=== PATIENT | female | born 1965 | race Caucasian/White ===

== ENCOUNTER 2018-06-03 12:12 | Outpatient (CLI) | payer BC, SELFPAY ==
--- NOTE | 2018-06-03 11:15 | DI.CT_ITS ---
SYMPTOMS/DIAGNOSIS: LT FLANK PAIN FOR 24 HRS, R10.9, COSTOCHONDRAL TENDERNESS ON EXAM, BENIGN URINE, LLQ TENDERNESS TO PALPATION RENAL COLIC CT: The study was conducted according to the usual protocol without contrast enhancement. The kidneys are normal. There is no evidence of nephrolithiasis or hydronephrosis. There is no evidence of ureterolithiasis or ureterectasis. The mid and inferior portions of the liver are demonstrated and are unremarkable. The gallbladder, pancreas and visualized portions of the spleen are unremarkable. The adrenals are normal. There is no evidence of bowel obstruction. No localized mass or evidence of an inflammatory process is identified. There is no evidence of an acute appendix. There is no evidence of intra-abdominal free fluid or free air. An IUD appears to be in good position in the endometrial cavity of the uterus. The bladder is suboptimally distended but appears grossly intact. There is no evidence of a hernia. There are minimal atherosclerotic changes involving the aorta without evidence of an aneurysm. Degenerative changes involving the lower lumbar spine are identified. SUMMARY: No pathology is demonstrated. There is no evidence of an acute abdomen. An IUD is demonstrated in good position in the endometrial cavity. Incidental findings as described above.
== END 2018-06-03 12:32 ==
PROVIDERS: PCP Nurse Practitioner Family; Visit Provider Family Medicine
DX: R10.32 Left lower quadrant pain (principal); R07.1 Chest pain on breathing; Z97.5 Presence of (intrauterine) contraceptive device
CPT/HCPCS: 74176

== ENCOUNTER 2018-06-03 18:13 | Outpatient (REF) | payer BC, SELFPAY ==
[2018-06-03 18:56] LABS: Bilirubin Negative (Negative); Blood Negative (Negative); Clarity Clear; Glucose Negative (Negative); Ketones Negative (Negative); Leukocyte Esterase Negative (Negative); Nitrite Negative (Negative); Specific Gravity 1.025 (1.005-1.025); Urobilinogen 0.2 EU/dL (Up TO 0.2)
== END 2018-06-03 18:33 ==
LOC: NCHCN 18:13
PROVIDERS: PCP Nurse Practitioner Family; Visit Provider Family Medicine
DX: R10.31 Right lower quadrant pain (principal)
CPT/HCPCS: 81003

== ENCOUNTER 2018-08-11 09:47 | Outpatient (CLI) | payer BC, SELFPAY ==
--- NOTE | 2018-08-11 16:30 | DI.MAMMO_ITS ---
SYMPTOM/DIAGNOSIS: SCREENING, PREVENTATIVE, Z00.00 MAMMOGRAMS: Mammograms were interpreted according to the usual protocol including computer analysis with CAD system, tomosynthesis and C view imaging. Comparison is made with exams from 0292-9013. The breasts are composed of scattered fibroglandular densities, breast density, category B. The patient was unable to tolerate adequate compression, particularly on the MLO views. No suspicious masses or suspicious microcalcifications are seen. There has been no significant change. IMPRESSION: Category 1B, negative mammogram. Yearly screening mammography is recommended. [facility] ASSESSMENT OF FINDINGS: Negative. Category 1. Patient will receive a letter notifying them of these results. BI-RADS category B. There are scattered areas of fibroglandular density.
== END 2018-08-11 10:07 ==
PROVIDERS: PCP Nurse Practitioner Family; Visit Provider Family Medicine
DX: Z00.00 Encounter for general adult medical examination without abnormal findings (principal); Z12.31 Encounter for screening mammogram for malignant neoplasm of breast
CPT/HCPCS: 77063; 77067

== ENCOUNTER 2019-02-01 09:57 | Outpatient (CLI) | payer BC, SELFPAY ==
--- NOTE | 2019-02-01 16:05 | DI.US_ITS ---
SYMPTOM/DIAGNOSIS: LOCALIZED SWELLING, MASS R22.1 THYROID ULTRASOUND: The right thyroid lobe measures 5.2 by 1.8 by 1.6 cm. A tiny cystic area of nodularity is noted in the mid pole. The isthmus measures 2.2 mm. The left thyroid lobe measures 4 by 1.6 by 1.4 mm. and is unremarkable. SOFT TISSUE NECK ULTRASOUND: A 1.3 by 0.7 by 1.2 cm. mass could represent a sebaceous cyst or abnormal lymph node or avascular mass. These findings to be correlated with the patient's clinical status.
== END 2019-02-01 10:17 ==
PROVIDERS: PCP Family Medicine; Visit Provider Family Medicine
DX: R22.1 Localized swelling, mass and lump, neck (principal); E07.89 Other specified disorders of thyroid
CPT/HCPCS: 76536

== ENCOUNTER 2019-02-08 15:42 | Outpatient (CLI) | payer BC, SELFPAY ==
[2019-02-08 17:32] LABS: CREATININE 0.86 mg/dL (0.55-1.02)
== END 2019-02-08 16:02 ==
PROVIDERS: PCP Family Medicine; Visit Provider Physician Assistant
DX: Z01.812 Encounter for preprocedural laboratory examination (principal)
CPT/HCPCS: 36415; 82565

== ENCOUNTER 2019-02-10 01:04 | Outpatient (CLI) | payer BC, SELFPAY ==
[2019-02-10] MEDS: Omnipaque 350 MG/ML 100 ML BTL IV (14:33)
--- NOTE | 2019-02-10 14:33 | DI.CT_ITS ---
SYMPTOMS/DIAGNOSIS: LEFT ANTERIOR NECK MASS X 1 MONTH, R22.1, TENDER TO PALPATION, CERVICAL LYMPHADENOPATHY, R59.0 CT SCAN OF THE NECK: Comparison ultrasound is 02/01/19. A marker was placed on the area of palpable concern. There is a well-circumscribed hypodense nonenhancing 1.3 x 1 cm x 1 cm nodule, which appears to correspond to the palpable abnormality. It lies on top of the left sternocleidomastoid muscle. It lies adjacent to the subcutaneous vasculature. This is nonspecific. This may represent a lymph node or sebaceous cyst. The nasopharynx, oropharynx, hypopharynx and larynx are unremarkable. The retropharyngeal space is unremarkable. The thyroid gland has a normal appearance. The parotid and submandibular glands have a normal appearance. The vascular structures are unremarkable. The lung apices are clear. No other significant adenopathy is seen in the chest. Degenerative changes are seen in the spine. The visualized paranasal sinuses are clear. No fluid levels are seen. The mastoid air cells are well pneumatized. IMPRESSION: Solitary 1 x 1.3 x 1 cm soft tissue nodule in the subcutaneous tissues in the left neck. This corresponds to the palpable abnormality. This may represent a benign lesion such as a lymph node or sebaceous cyst. Other etiologies cannot be excluded. If there is continued concern, followup may be considered. This may include a repeat ultrasound to document stability and size; biopsy or aspiration may also be considered.
== END 2019-02-10 01:24 ==
PROVIDERS: PCP Family Medicine; Visit Provider Otolaryngology Otolaryngology/Facial Plastic Surgery
DX: R22.1 Localized swelling, mass and lump, neck (principal); R59.0 Localized enlarged lymph nodes
CPT/HCPCS: 70491; J3490

== ENCOUNTER 2019-02-21 12:31 | Outpatient (REF) | payer BC, SELFPAY ==
--- NOTE | 2019-02-21 11:39 | PAPNONF_PTH ---
PATIENT: Ute Balbuena LOC: [facility]#:[id number] AGE/SX: 53/F ROOM: RE02/21/[address]: Vignesh Durham DO : 1965 BED: DIS: 02/21/2019 SPEC #: [id number] RECD: 02/22/19 12:32 STATUS: JIHAN REQ #: [id number] JAKY: 02/21/19 11:[address]: Vignesh Durham DEPT: [facility] Cytology RECD BY: Quin Gifford ENTERED: 02/22/19 12:33 SP TYPE: MARY JIMENEZ DR: Nikole Bautista Tissues: 1 - BODY FLUID CYTO-FINE NEEDLE ASPIRATE-[facility] Procedures: BODY FLUID CYTO-FINE NEEDLE ASPIRATE-[facility] Comments: [id number]
== END 2019-02-21 12:51 ==
LOC: NCHCN 12:31
PROVIDERS: PCP Family Medicine; Referring Provider Family Medicine; Visit Provider Otolaryngology Otolaryngology/Facial Plastic Surgery
DX: R22.1 Localized swelling, mass and lump, neck (principal)
CPT/HCPCS: 88104

== ENCOUNTER 2019-05-02 11:18 | Outpatient (CLI) | payer BC, SELFPAY ==
--- NOTE | 2019-05-02 11:46 | DI.RAD_ITS ---
EXAM: XR KNEE LT 3V AP,LAT,BAILEY CLINICAL HISTORY: KNEE PAIN LT, M25.562. TECHNIQUE: 2D digital imaging was performed. COMPARISON: LEFT KNEE 3 VIEW COMPLETE from 11/03/2014 FINDINGS: BONES: No acute fracture is present. No bony destructive lesion is seen. JOINTS: The knee is normally aligned. No joint effusion is seen. SOFT TISSUE: Normal. IMPRESSION: Normal radiographs of the left knee.
== END 2019-05-02 11:38 ==
PROVIDERS: PCP Family Medicine; Visit Provider Family Medicine
DX: M25.562 Pain in left knee (principal)
CPT/HCPCS: 73562

== ENCOUNTER 2019-05-02 11:51 | Outpatient (REF) | payer BC, SELFPAY ==
[2019-05-02 20:03] LABS: TSH (W/Ref FT4) 1.26 uIU/mL (0.36-3.74)
== END 2019-05-02 12:11 ==
LOC: NCHCN 11:51
PROVIDERS: PCP Family Medicine; Visit Provider Family Medicine
DX: R22.1 Localized swelling, mass and lump, neck (principal)
CPT/HCPCS: 84443

== ENCOUNTER 2019-12-09 15:12 | Outpatient (REF) | payer BC, SELFPAY | END 2019-12-09 15:32 | LOC: NCHCN 15:12 | PROVIDERS: PCP Family Medicine; Visit Provider Family Medicine | DX: N39.0 Urinary tract infection, site not specified (principal) | CPT/HCPCS: 87086 ==

== ENCOUNTER 2020-05-22 08:50 | Outpatient (REF) | payer BC, SELFPAY ==
[2020-05-22 12:52] LABS: Calculated LDL 118 mg/dL (<100); Cholesterol 170 mg/dL (<200); Glucose 101 mg/dL (74-106); HDL Cholesterol 31 mg/dL (40-60); Triglyceride 108 mg/dL (<150)
== END 2020-05-22 09:10 ==
LOC: NCHCN 08:50
PROVIDERS: PCP Family Medicine; Visit Provider Family Medicine
DX: Z00.00 Encounter for general adult medical examination without abnormal findings (principal); Z13.220 Encounter for screening for lipoid disorders; Z13.1 Encounter for screening for diabetes mellitus
CPT/HCPCS: 80061; 82947

== ENCOUNTER 2020-06-18 15:37 | Outpatient (REF) | payer BC, SELFPAY ==
[2020-06-21 01:50] LABS: Patient Race White; SARS-CoV-2 RNA Undetected (Undetected); SARS-CoV-2 Specimen Source Nasal
== END 2020-06-18 15:57 ==
LOC: NCHCN 15:37
PROVIDERS: PCP Family Medicine; Visit Provider Nurse Practitioner Family
DX: R05 Cough (principal)
CPT/HCPCS: U0003

== ENCOUNTER 2020-06-22 12:26 | Outpatient (REF) | payer BC, SELFPAY ==
[2020-06-22 20:38] LABS: Abs Immature Grans 0.03 10^3/uL (0.0-0.06); Absolute Basophil Count 0.08 10^3/uL (0.0-0.2); Absolute Eosinophil Count 0.56 10^3/uL (0.0-0.7); Absolute Lymphocyte Count 2.14 10^3/uL (1.2-3.4); Absolute Monocyte Count 0.73 10^3/uL (0.1-0.8); Absolute Neutrophil Count 6.68 10^3/uL (1.2-6.7); Basophils % 0.8; Eosinophils % 5.5; HCT 46.9 % (36.0-46.0); HGB 15.6 g/dL (11.2-15.7); Immature Grans % 0.3; Lymphocytes % 20.9; MCH 28.7 pg (27.0-33.0); MCHC 33.3 % (32.0-36.0); MCV 86.2 fL (80-95); MPV 13.7 fL (8.0-11.0); Monocytes % 7.1; Neutrophils % 65.4; Nucleated RBC 0 %; RBC 5.44 10^6/uL (3.93-5.22); RDW 11.9 % (11.7-14.6); RDW-SD 37.8 fL; WBC 10.22 10^3/uL (4.4-10.8)
[2020-06-22 20:55] LABS: ALT 19 U/L (14-59); AST 17 U/L (15-37); Alkaline Phosphatase 99 U/L (46-116); BUN 15 mg/dL (7-18); Bilirubin, Total 0.4 mg/dL (0.2-1.0); C-Reactive Protein 1.25 mg/dL (0.0-0.3); CREATININE 0.84 mg/dL (0.55-1.02); Calcium 9.2 mg/dL (8.5-10.1); Chloride 105 mmol/L (98-107); Glucose 141 mg/dL (74-106); Potassium 4.1 mmol/L (3.5-5.1); Sodium 141 mmol/L (136-145); Total Protein 7.2 g/dL (6.4-8.2)
[2020-06-22 21:13] LABS: Platelet Count 322 10^3/uL (130-400)
[2020-06-26 03:40] LABS: Patient Race White; SARS-CoV-2 RNA Undetected (Undetected); SARS-CoV-2 Specimen Source Nasal
== END 2020-06-22 12:46 ==
LOC: NCHCN 12:26
PROVIDERS: PCP Family Medicine; Visit Provider Nurse Practitioner Family
DX: R05 Cough (principal); R06.09 Other forms of dyspnea
CPT/HCPCS: 80053; U0003; 85025; 86140

== ENCOUNTER 2020-06-22 18:34 | Outpatient (CLI) | payer BC, SELFPAY ==
--- NOTE | 2020-06-22 12:00 | DI.RAD_ITS ---
EXAM: XR CHEST 2V PA LATERAL CLINICAL HISTORY: COUGH R05 TECHNIQUE: 2D digital imaging was performed. COMPARISON: CR CHEST 2 VIEWS PA,LAT from 05/26/2016 FINDINGS: MEDIASTINUM: Normal. HEART: Normal. PULMONARY VASCULATURE: Normal. LUNGS: Clear. PLEURAL SPACE: No pleural effusion or pneumothorax. BONE:Within normal limits for the patient's age. OTHER FINDINGS:Normal. IMPRESSION: No acute pulmonary findings. DATA REPOSITORY: RADIATION DOSE DELIVERED:
== END 2020-06-22 18:54 ==
PROVIDERS: PCP Family Medicine; Visit Provider Nurse Practitioner Family
DX: R05 Cough (principal)
CPT/HCPCS: 71046

== ENCOUNTER 2020-07-17 00:23 | Outpatient (CLI) | payer BC, SELFPAY ==
--- NOTE | 2020-07-17 | DI.MAMMO_ITS ---
EXAM: MG MAMMO SCREENING CLINICAL HISTORY: SCREENING, Z12.31 TECHNIQUE: Bilateral full field digital CC and MLO mammographic images were obtained with 3D tomosyn thesis and utilizing computer aided detection (CAD). COMPARISON: Available for comparison. FINDINGS: Masses/Architectural Distortion: None seen. Microcalcifications: No suspicious pleomorphic-type are seen. Skin Thickening/Nipple Retraction: None. IMPRESSION: 1. No significant interval change with no specific features of malignancy noted. 2. Unless there is more urgent need, screening mammography is recommended, as per [place] [employer] guidelines. BI-RADS Category 1 - Negative Breast Density - Category B - Scattered areas of fibroglandular density A negative radiographic report should not delay biopsy if a dominant or clinically suspicious mass is present. Up to ten percent of cancers are not identified on mammography. A negative report may reinforce clinical impression. Adenosis and dense breasts may obscure an underlying neoplasm. False positive reports average 6 to 10%. Patient will receive a letter notifying them of these results.
== END 2020-07-17 00:43 ==
PROVIDERS: PCP Family Medicine; Visit Provider Family Medicine
DX: Z12.31 Encounter for screening mammogram for malignant neoplasm of breast (principal)
CPT/HCPCS: 77063; 77067

== ENCOUNTER → 2020-10-02 13:53 | Outpatient (CLI) | payer BC, SELFPAY ==
--- NOTE | 2020-10-02 | DI.RAD_ITS ---
EXAM: XR KNEE LT 4V AP,LAT,BAILEY,PAT CLINICAL HISTORY: LT KNEE PAIN M25.562, WITH SUNRISE PLEASE TECHNIQUE: COMPARISON: CR XR KNEE LT 3V AP,LAT,BAILEY from 05/02/2019 FINDINGS: Four views were obtained. There is moderate narrowing of the medial tibiofemoral cartilaginous joint space. Remainder of the cartilaginous joint spaces appear fairly well maintained. Mild marginal os teophyte formation noted at multiple sites. IMPRESSION: DJD predominantly involving medial tibiofemoral joint RADIATION DOSE DELIVERED: Total DLP
--- OUTSIDE RECORDS SUMMARY | 2020-10-05 13:55 | XMS_ITS | Encounter Summary ---
:1965 Author Care Team Providers Name Role Phone Nikole Bautista Primary Care Provider [phone] Reason for Visit None recorded. Assessment and Plan 1. Obstructive sleep apnea syndr ome HARI with an AHI of 8.5/hr and sp02 kyara 86% diagnosed on recent HST which may underestimate the severity of HARI. Given her symptoms treatment is recommended. I discussed treatment options to include oral appliance, ENT surgery and CPAP therapy and the advantages and disadvantages of each. he has BCBS which requires CPAP be the first treatment tried. She has agreed to start CPAP. CPAP 6-16cm is ordered. I discussed different mask options and the importance of finding the mask that will work for her within the first 30 days. I discussed how to adjust humidity for dryness/congestion and that the goal will be to use nightly for her total sleep time. I covered insurance compliance requirements and the DME's mask exchange policy. I will see her back between 31-90 days after starting CPAP and she is encouraged to call me sooner if s he is having any difficulties tolerating CPAP. I will order an overnight oximetry at follow-up after I determine if any pressure adjustments need to be made. Drowsy driving precautions were reviewed. I provided greater than 25 minutes in e care of this patient, more than half the time was spent in [id number] counseling. ? CPAP machine Discussion Note: None recorded.Patient educational handouts: No information available. Plan of Care Reminders Provider Appointments Office 30 11/06/2020 Jean Dalal, 10:30AM DIRECTOR PUBLIC SERVICE Lab None ? ? recorded. Referral None ? ? recorded. Procedures None ? ? recorded. Surgeries None ? ? recorded. Imaging None ? ? recorded. Medications Name Start Date ? ? albuterol sulf 90 mcg/actuation breath activated powde r inhaler,sensor ? Inhale 2 puffs every 4 hours by inhalation route. fexofenadine 180 mg tablet ? Take 1 tablet every day by oral route. omeprazole 40 mg capsule,delayed release ? Take 1 capsule every day by oral route. ranitidine 150 mg capsule ? Take 1 capsule twice a day by oral route. sertraline 50 mg tablet ? Take 1 tablet every day by oral route. Medications Administered None recorded. Vitals Height Weight BMI Blood Pressure 5 ft 6.5 in 235 lbs 37.4 kg/m2 122/74 mm[Hg] Results Lab Results None recorded. Allergies Code Code System Name Reaction Severity Onset Penicillins ? ? ? Problems Name Status Onset Date Source ? Snoring Active 12/16/2019 ? Vitamin D Deficiency Active 12/19/2019 ? Obesity Active 12/19/2019 ? Depressive Disorder Active 12/19/2019 ? Upper Respiratory Infection Active 12/19/2019 ? Asthma Active 12/19/2019 ? Chronic Obstructive Lung Disease Active 12/19/2019 ? Gastroesophageal Reflux Disease Active 12/19/2019 ? Hiatal Hernia Active 12/19/2019 ? Knee Pain Active 12/19/2019 ? Headache Active 12/19/2019 ? Obstructive Sleep Apnea Syndrome Active ? ? Procedures None recorded. Vaccine List None recorded. Social History Tobacco Smoking Status Never Smoker Alcohol intake Occasional Notes: mixed drin ks occasional Live alone or with others? with others Animal exposure? Y Notes: 3 dogs, pi g Are you currently employed? Y Blind or serious difficulty seeing Y Not es: wears glasses Hard of hearing or deaf in one or N both ears? Caffeine intake Occasional Notes: 1 coffee i n am Functional Status Blind or serious Yes difficulty seeing? Past Encounters 07/17/2020 Obstructive Sleep Apnea Syndrome Ina Dalal DIRECTOR PUBLIC SERVICE: [address] [place] [phone], Ph. History of Present Illness Note: <p>Ute Esha has a visit for HST results.</p><p>
</p><p>Ute had a phone visit with me on 12/20/19. She has a medical history to include obesity, asthma, COPD, vit D deficiency, depression, GERD, and headaches. Labs reviewed 05/02/19 TSH wnl, 02/08/19 Cr wnl. She noted symptoms of <span> loud snoring, frequent morning headaches, night sweats, and fatigue. A PSG was denied by her insurance. </span></p><p>HST 05/14/20 (BMI 36.56), and I reviewed the results with her today. AHI 8.5/hr, sp02 kyara 86%, 58 minutes spent with oxygen saturation <88%. Loud snoring was detected throughout the night.</p><p>
</p><p>Ute tells me she still has above symptoms. No new sleep symptoms. Her sleep for the HST was worse because she feels it took a lot longer to fall asleep. </p>Review of Systems: ROS as noted in the HPI Review of Systems None recorded. Physical Exam ? Notes: <p>General: A&O, well groome d {{over weight obese * morbidly obese normal weight thin}}.
HEAD: no rmocephalic & atraumatic.
EYES: non icteric.
LUNGS: CTA all f ields. Good air movement.
CARDIO: RRR without murmur, gallop or thrill.
NEURO: A&O. Normal gait.
PSYCH: Normal mood and affect.
CUTANEOUS: no overt lesions or rashes</p>
--- OUTSIDE RECORDS SUMMARY | 2020-10-05 13:55 | XMS_ITS ---
:1965 Author Care Team Providers Name Role Phone JIL CORONA Primary Care Provider [phone] Allergies Code Code System Name Reaction Severity Status Onset Penicillins ? ? Active ? Medications Name Status Start Date Stop Date ? ? albuterol sulf 90 mcg/actuation breath activated powder inhaler, sensor Active ? Not available Inhale 2 puffs every 4 hours by inhalation route. fexofenadine 180 mg tablet Active ? Not a vailable Take 1 tablet every day by oral route. omeprazole 40 mg capsule,delayed release Active ? Not available Take 1 capsule every day by oral route. ranitidine 150 mg capsule Active ? Not av ailable Take 1 capsule twice a day by oral route. sertraline 50 mg tablet Active ? Not avai lable Take 1 tablet every day by oral route. Symbicort 80 mcg-4.5 mcg/actuation HFA aerosol inhaler Completed ? 07/17/2020 Inhale 2 puffs twice a day by inhalation route. zolpidem 5 mg tablet Completed ? 07/17/2020 take 1-2 PO night of sleep study if needed Problems Name Status Onset Date Source ? [...] Sleep Apnea Syndrome Active ? ? Procedures Date Name Performed by ? 05/08/2020 Home Sleep Study Information not avai lable Results Lab Results None recorded. Past Encounters 07/17/2020 Obstructive Sleep Apnea Syndrome Ina Dalal LIBRARY INFORMATION TECHNICIAN: [address] [place] [phone], Ph. 12/20/2019 Snoring Ina Dalal, LIBRARY INFORMATION TECHNICIAN: [address] [place] [phone], Ph. Social History Tobacco Smoking Status Never Smoker Vaccine List None recorded. Plan of Care Reminders Provider Appointments None ? ? recorded. Lab None ? ? recorded. Referral None ? ? recorded. Procedures None ? ? recorded. Surgeries None ? ? recorded. Imaging None ? ? recorded. Vitals 07/17/2020 08:30AM Office 30 Height Weight BMI Blood Pressure 168.91 cm 106.59 kg 37.4 kg/m2 122/74 mm[Hg] 12/20/2019 09:45AM Office 30 Height Weight BMI 168.91 cm 104.33 kg 36.6 kg/m2
== END ==
PROVIDERS: PCP Family Medicine; Visit Provider Acupuncturist
DX: M17.12 Unilateral primary osteoarthritis, left knee (principal)
CPT/HCPCS: 73564

== ENCOUNTER 2020-10-19 07:44 | Outpatient (REF) | payer BC, SELFPAY | END 2020-10-19 07:45 | disposition home or self-care (01) | LOC: NCHCN 07:44 | PROVIDERS: PCP Family Medicine; Visit Provider Family Medicine | DX: R73.9 Hyperglycemia, unspecified (principal) | CPT/HCPCS: 82947; 83036 ==

== ENCOUNTER 2020-10-26 11:33 | Outpatient (REF) | payer BC, SELFPAY ==
--- NOTE | 2020-10-26 10:15 | PAPFT_PTH ---
PATIENT: Ute Balbuena LOC: [facility] U#:[id number] AGE/SX: 55/F ROOM: RE10/26/[address]: LATHA Bishop : 1965 BED: DIS: 10/26/2020 SPEC #: [id number] RECD: 10/26/20 12:55 STATUS: JIHAN REQ #: [id number] JAKY: 10/26/20 10:[address]: Munira Bauer DEPT: [facility] Cytology RECD BY: Quin Gifford ENTERED: 10/26/20 12:55 SP TYPE: PAPFT OTHR DR: Nikole Bautista Tissues: 1 - CX/ENDOCX FOR PAP SMEARS Procedures: PAP THIN PREP/[facility] Screening HPV DNA PROBE Comments: [id number]
== END 2020-10-26 11:34 | disposition home or self-care (01) ==
LOC: LBN 11:33
PROVIDERS: PCP Family Medicine; Visit Provider Nurse Practitioner Family
DX: Z12.4 Encounter for screening for malignant neoplasm of cervix (principal); Z11.51 Encounter for screening for human papillomavirus (HPV)
CPT/HCPCS: 88142; 87624

== ENCOUNTER 2021-01-17 13:53 | Outpatient (CLI) | payer BC, SELFPAY ==
[2021-01-17] MEDS: Breeza Beverage 473 ML BTL PO ×2 (13:33→13:34)
[2021-01-17] MEDS: Omnipaque 350 MG/ML 100 ML BTL IJ (13:33)
[2021-01-17] MEDS: Normal Saline - Diluent 50 ML VIAL IV (13:33)
[2021-01-17] MEDS: Omnipaque 350 MG/ML 50 ML BTL PO (13:34)
[2021-01-17] MEDS: Normal Saline Flush 10 ML SYR IVP (13:35)
--- NOTE | 2021-01-17 13:35 | DI.CT_ITS ---
Exam(s) CT ABDOMEN PELVIS W EXAM: CT ABDOMEN PELVIS W CLINICAL HISTORY: LT LOWER QUAD ABD PAIN, R10/32. TECHNIQUE: Imaging Protocol: Axial computed tomography images with coronal and sagittal reformatted images were created and reviewed CONTRAST MATERIAL: Intravenous: Omnipaque 100cc Oral: YES COMPARISON: CT CT renal colic wo from 06/03/2018 FINDINGS: VISUALIZED LUNG BASES: No nodules nor pleural effusions evident. ABDOMEN: There is no ascites. LIVER: there is a well-defined benign-appearing hypodensity in the medial aspect of the right hepatic lobe which measures 12 x 11 millimeters, most probably benign cyst. the prior 2018 study was a dedi cated renal calculus protocol study and did not include this part of the liver. There are no other f ocal hepatic lesions identified. No dilatation of intrahepatic ducts. GALLBLADDER/BILIARY: No obvious gallbladder pathology. CBD is not dilated. PANCREAS: No evidence of pancreatic mass nor dilatation of the pancreatic duct. SPLEEN: Spleen is not enlarged. No obvious intrasplenic lesions. Splenic and portal veins are paten t. ADRENALS: There are no significant adrenal masses. KIDNEYS:No cysts evident. No solid renal masses. No calculi nor hydronephrosis.. ABDOMINAL AORTA: Abdominal aorta is not enlarged. LYMPH NODES:There is no retroperitineal nor paraaortic adenopathy. There is very subtle streaking an terior to the lower abdominal aorta around the area of the inferior mesenteric artery takeoff, withou t prominent adenopathy at this level nor at the level of the aortic bifurcation. Also no adenopathy along the iliac chains. No inguinal adenopathy. ABDOMINAL WALL: No evidence of significant anterior abdominal wall hernia. GI: There is no evidence of bowel obstruction, free air, nor abscess. PELVIS: GI: The appendix is not seen is a separate structure but there are no obvious secondary signs of acut e appendicitis.No evidence of sigmoid diverticulitis. LYMPH NODES: There is no intrapelvic nor inguinal adenopathy. REPRODUCTIVE: Uterus appears age-appropriate. There are no abnormal adnexal masses nor free fluid in the pelvis. URINARY BLADDER: No calculi nor obvious masses evident OSSEOUS: No significant osseous lesions. Chronic advanced disc space narrowing at L5-S1 noted. The other disc spaces exhibit normal height. IMPRESSION: 1. In this patient apparently has left lower quadrant abdominal pain there does not appear to to be e vidence of significant sigmoid diverticular disease. The appendix is surgically absent. There are n o abnormal adnexal masses nor free fluid in the pelvis. 2. There is a solitary benign-appearing small cyst in the liver which measures 12 x 11 millimeters. 3. Possible significance is very mild subtle density just anterior to the lower abdominal aorta, this at the inferior mesenteric artery takeoff point. There is no abnormal fluid collection at this leve l. No gross lymphadenopathy. 4. There is no evidence of bowel obstruction, free air, nor abscess. No evidence of anterior abdomin al hernia nor inguinal hernia. RADIATION DOSE DELIVERED: 1,343.32mGy.cm Total DLP DATA REPOSITORY: All CT scans at this facility are submitted to the National Radiology Data Registry (NRDR) Dose Index Registry (DIR) with the [employer] (ACR). RADIATION OPTIMIZATION: All CT scans at this facility use at least one of these dose optimization te chniques: automated exposure control; mA and/or kV adjustment per patient size (includes targeted exa ms where dose is matched to clinical indication); or iterative reconstruction.
== END 2021-01-17 14:13 ==
PROVIDERS: PCP Family Medicine; Visit Provider Nurse Practitioner
DX: R10.32 Left lower quadrant pain (principal); K76.89 Other specified diseases of liver
CPT/HCPCS: 74177; J3490; Q9967

== ENCOUNTER 2021-03-18 03:14 | Outpatient (CLI) | payer BC, SELFPAY ==
[2021-03-18 08:31] LABS: Abs Immature Grans 0.01 10^3/uL (0.0-0.06); Absolute Basophil Count 0.07 10^3/uL (0.0-0.2); Absolute Eosinophil Count 0.68 10^3/uL (0.0-0.7); Absolute Lymphocyte Count 1.85 10^3/uL (1.2-3.4); Eosinophils % 9.3; HCT 42.3 % (36.0-46.0); HGB 13.8 g/dL (11.2-15.7); Immature Grans % 0.1; Lymphocytes % 25.3; MCH 28.7 pg (27.0-33.0); MCHC 32.6 % (32.0-36.0); MCV 87.9 fL (80-95); MPV 10.3 fL (8.0-11.0); Monocytes % 6.8; Neutrophils % 57.5; Nucleated RBC 0 %; Platelet Count 291 10^3/uL (130-400); RBC 4.81 10^6/uL (3.93-5.22); RDW 12.2 % (11.7-14.6); RDW-SD 39.4 fL; WBC 7.31 10^3/uL (4.4-10.8)
[2021-03-18 12:41] LABS: Source Nasal/Nares
[2021-03-18 18:38] LABS: COVID-19 PCR Negative (Negative)
== END 2021-03-18 03:15 | disposition home or self-care (01) ==
LOC: LBO 03:14
PROVIDERS: PCP Family Medicine; Visit Provider Obstetrics & Gynecology
DX: R10.2 Pelvic and perineal pain (principal); N95.0 Postmenopausal bleeding; Z20.822 Contact with and (suspected) exposure to COVID-19; Z01.818 Encounter for other preprocedural examination; Z01.812 Encounter for preprocedural laboratory examination
CPT/HCPCS: 36415; 86850; 86900; 86901; 87635; 85025

== ENCOUNTER 2021-03-20 06:16 | Day surgery (SDC) | payer BC, SELFPAY ==
[2021-03-20 06:25] VITALS: BP 132/77; PULSE 77; RESP 16; TEMP 36.8; O2SAT 96
[2021-03-20] MEDS: Lactated Ringers 1,000 ML 125 ML IV (07:00)
--- NOTE | 2021-03-20 07:52 | W.ANESPRE ---
General Info Date of Service Date Performed: 03/20/21 Height: 5 ft 6 in Weight: 109.9 kg Body Mass Index (BMI): 39.1 Surgical Procedure: Operation Date: 03/20/21 07:40 Proposed Procedures Side Surgeon p Dilation & Curettage with Hysteroscopy Esther Monroe DO Meds Allergies and Home Medications Allergies Allergy/AdvReac Type Severity Reaction Status Date / Time Penicillins Allergy Severe Other (See Unverified 03/20/21 06:39 Comment) Home Medication Medication Instructions Recorded omeprazole [Prilosec] 40 mg PO DAILY 11/04/12 fexofenadine [Patricia Allergy] 60 mg PO HS 02/20/15 ranitidine HCl 150 mg capsule 150 mg PO HS 08/26/18 sertraline 50 mg tablet 50 mg PO HS 08/26/18 Current Visit Medications: Current Medications Generic Name Dose Route Start Last Admin Trade Name Freq PRN Reason Stop Dose Admin Ringer's Solution 1,000 mls @ 125 mls/hr 03/20/21 06:00 03/20/21 07:00 IV 04/18/21 23:59 125 mls/hr INFUSION LEO Administration IV Miscellaneous Supplies 1 each 03/20/21 06:00 Iv Access IV 04/18/21 23:59 DIRECTED LEO Sodium Chloride 0 ml 03/20/21 06:00 Normal Saline Flush 10 Ml Syr IV 04/18/21 23:59 PRN PRN Sodium Chloride 0 ml 03/20/21 06:00 Normal Saline 10 Ml Vial IJ 04/18/21 23:59 DIRECTED PRN Sterile Water 0 ml 03/20/21 06:00 Water,Injection,Sterile 10 Ml Vial IJ 04/18/21 23:59 DIRECTED PRN PFSH Active Problems Active Problems: Problem Status Onset Code Neck mass R22.1 Neck pain M54.2 Cervical lymphadenopathy R59.0 Pelvic pain R10.2 Postmenopausal bleeding N95.0 Medical History Medical History Allergic asthma Depression Fibrocystic changes of left breast Flank pain GERD Headache Hiatal hernia History of vitamin D deficiency Pelvic pain Postmenopausal bleeding Sleep apnea Stage 1 mild COPD by GOLD classification Surgical History Surgical History Anal fissure repair (~2003) Dilation and curettage after SAB H/O colonoscopy 10/11/2007 Dr Pablito Adams for blood per rectum, negative colo, blood likely from hemorrhoids Ligation of fallopian tube Tobacco Smoking/Tobacco Use Status: Never Alcohol Alcohol Intake: current Alcohol intake frequency: a few times a week Alcohol type: hard liquor Substance Use Substance use: Never Substance use type: does not use Vital Signs and Lab Results Vital Signs Most Recent Vital Signs in EMR: Most Recent Vital Signs Temp Pulse Resp BP Pulse Ox 36.8 C 77 16 132/77 96 03/20/21 06:25 03/20/21 06:25 03/20/21 06:25 03/20/21 06:25 03/20/21 06:25 Point of Care Results Point of Care Results: POC- Test(urine) Negative 03/20/21 07:03 Lab Results Blood Type / Crossmatch: Patient ABO/Rh A Positive 03/18/21 08:12 03/18/21 Antibody Screen NEGATIVE 03/18/21 08:12 03/18/21 Complete Blood Count: White Blood Count 7.31 10^3/uL (4.4-10.8) 03/18/21 08:12 03/18/21 Red Blood Count 4.81 10^6/uL (3.93-5.22) 03/18/21 08:12 03/18/21 Hemoglobin 13.8 g/dL (11.2-15.7) 03/18/21 08:12 03/18/21 Hematocrit 42.3 % (36.0-46.0) 03/18/21 08:12 03/18/21 Platelet Count 291 10^3/uL (130-400) 03/18/21 08:12 03/18/21 Complete Metabolic Panel: No Data to Display Liver Function Panel: No Data to Display Coagulation Panel: No Data to Display Cardiac Panel: No Data to Display Arterial Blood Gas: No Data to Display Venous Blood Gas: No Data to Display Pancreas Panel: No Data to Display Thyroid Panel: No Data to Display Infectious Disease: Coronavirus (COVID-19)(PCR) Negative (Negative) 03/18/21 08:38 03/18/21 Coronavirus 2019 Source Nasal/Nares 03/18/21 08:38 03/18/21 Blood Cultures: No Data to Display Toxicology Panel: No Data to Display Imaging and Studies Imaging and Studies Stress Test Summary: 1. Stress ECG conclusions: The stress ECG is negative. Lobo treadmill score: 7. This score predicts a low risk of cardiac events. 2. Stress: The target heart rate was achieved. The heart rate response to stress is normal. There is a normal resting blood pressure with an appropriate response to stress. The patient experienced no chest pain during stress. Exercise capacity is normal for age. Pulmonary Function Summary: SPIROMETRY: Spirometry shows mild obstructive airways disease with no significant bronchodilator response. LUNG VOLUMES: Lung volumes show no evidence of restriction. There is mild to moderate hyperinflation and air trapping. DIFFUSION CAPACITY: Mildly elevated. AIRWAY RESISTANCE: Normal. IMPRESSION: Mild obstructive airways disease with no significant bronchodilator response. This is associated with mild hyperinflation and air trapping. Mildly increased diffusion capacity can be seen in asthma. Clinical correlation recommended. Anesthesia Assessment and Plan Anesthesia History Personal History: No History of Anesthesia Complications Family History: No Family History of Anesthesia Complications Exercise Tolerance Exercise Tolerance: Metabolic Equivalents>4 Pertinent Negatives Pertinent Negatives: No Symptoms of GERD (medicated with Prilosec), No Major Cardiovascular Symptoms or Complaints, No Major Pulmonary Symptoms or Complaints (Hx of COPD. Stable per patient. ) and No History of CVA/TIA Cardiac & Pulmonary Exam Cardiac Exam: Normal S1/S2 Heart Sounds Pulmonary Exam: Clear Bilateral Breath Sounds Airway Exam Known Difficult Airway: No Mallampati Class: 2 Mouth Opening: Normal (> 3cm) Thyromental Distance: Greater than 3 cm Neck Range of Motion: Full ROM Neck Circumference: Normal Teeth Condition: Normal Dentition ASA Classification ASA Score: ASA 2 Emergency Case?: No NPO Status NPO Status: NPO Clears >2 hours, Solids >8 hours Anesthesia Plan Resuscitation Status: Full Code Anesthesia Technique: General Anesthesia Airway Planned: Natural Airway Monitors Used: Standard Monitors
[2021-03-20 08:36] VITALS: BMI 39.1
--- NOTE | 2021-03-20 09:12 | ENDO_PTH ---
PATIENT: Ute Balbuena LOC: [facility] U#:[id number] AGE/SX: 55/F ROOM: RE03/20/[address]: Esther Monroe DO : 1965 BED: DIS: 03/20/2021 SPEC #: [id number] RECD: 03/20/21 12:31 STATUS: JIHAN REQ #: [id number] JAKY: 03/20/21 09:[address]: Esther Monroe DEPT: Surgical Specimen RECD BY: Quin Gifford ENTERED: 03/20/21 12:37 SP TYPE: Endo OTHR DR: Nikole Bautista Tissues: 1 - ENDOCERVICAL BX/CURRETTE 2 - ENDOMETRIUM BX/CURRETTE Procedures: GROSS AND MICRO LEVEL 4 Comments: [id number]
[2021-03-20] MEDS: Silver Nitrate Stick 1 EACH (09:15)
--- NOTE | 2021-03-20 09:23 | W.PM.OP ---
Date of service: 03/20/21 Time of Service: 09:23 Operative Note Operative Note DATE OF PROCEDURE: 03/20/21 PRE-OP DIAGNOSIS: Postmenopausal bleeding POST-OP DIAGNOSIS: same PROCEDURE: Hysteroscopy with dilation and curettage SURGEON: Esther Monroe ANESTHESIA TYPE: General:No Airway Refer to Anesthesia Record ESTIMATED BLOOD LOSS: 5 PATHOLOGY: other (1. Endocervical curettage 2. Endometrial curettage) COMPLICATIONS: None Patient was transported to: same day Patient's condition: stable Indications: Postmenopausal bleeding Findings: Uterus that sounded to 10 cm, smooth regular endometrial lining. No evidence of polyp or fibroid. Procedure Description: Patient was taken the operating suite with IV running where she is placed in the dorsal supine position. Anesthesia administered via monitored anesthesia care. She is then prepped and draped in usual sterile fashion with legs in yellowfin stirrups and compression stockings in place. Speculum was placed into the posterior vaginal vault. Single-tooth tenaculum was used to grasp the anterior lip of the cervix. Cervical os dilated the point that a 5 mm hysteroscope with ease. At this point with instillation of normal saline the entire endometrial cavity was inspected and found to be smooth and regular. At this point the hysteroscope portion of the continued and removed. Endocervical curettage performed followed by endometrial curettage and 2 separate specimens were sent to pathology. Tenaculum was removed from the cervix. Puncture sites cauterized with silver nitrate and speculum was removed. Patient was returned to dorsal supine position and awoke from anesthesia with ease. Complications: None apparent Pathology: 1. Endocervical curettage 2. Endometrial curettage EBL: 5 mL
[2021-03-20 09:26] VITALS: BP 114/58; PULSE 67; RESP 14; TEMP 36.2; O2SAT 96
--- NOTE | 2021-03-20 09:27 | W.ANESPOSTOP ---
Postoperative Evaluation Date, Time and Location Date Performed: 03/20/21 Time Performed: 09:27 Patient Location: Day Surgery Unit Vital Signs Most Recent Imported Vital Signs: Most Recent Vital Signs Temp Pulse Resp BP Pulse Ox 36.8 C 77 16 132/77 96 03/20/21 06:25 03/20/21 06:25 03/20/21 06:25 03/20/21 06:25 03/20/21 06:25 Most Recent Manually Entered Vital Signs: Adult Blood Pressure: 114/58 Heart Rate: 68 Respirations: 16 Oxygen Saturation (%): 96 Temperature (C): 36.2 C Pain Score (0-10 Scale): 0 Pain Score Most Recent Pain Score: Most Recent Pain Score Pain Level 3 03/20/21 06:25 Assessment Mental Status: Awake (Alert & Oriented to Patient Baseline) Airway and Respiratory Function: Patent airway with normal (patient baseline) respiratory exam Cardiovascular Function: Hemodynamically Stable Hydration Status: Adequately Hydrated Nausea & Vomiting: No Nausea or Vomiting Pain: Pt. Denies Any Pain Peripheral Nerve Block: Patient did not receive a nerve block
[2021-03-20 09:28] VITALS: BP 114/58; PULSE 68; RESP 16; TEMPC 36.2; O2SAT 96
[2021-03-20 10:01] VITALS: BP 108/66; PULSE 58; RESP 16; TEMP 36.5; O2SAT 96
[2021-03-20] MEDS: oxyCODONE 5 mg/Acetaminophen 325 mg TAB 1 TAB PO (10:25)
[2021-03-20 11:17] VITALS: BP 122/70; PULSE 58; RESP 16; TEMP 36.2; O2SAT 96
== END 2021-03-20 11:25 | disposition home or self-care (01) ==
PROVIDERS: PCP Family Medicine; Visit Provider Obstetrics & Gynecology
PROC: 0UDB8ZZ Extraction of Endometrium, Via Natural or Artificial Opening Endoscopic (ICD-10-PCS; CPT 58558; principal; 2021-03-20 07:30)
DX: N95.0 Postmenopausal bleeding (principal); J44.9 Chronic obstructive pulmonary disease, unspecified; K21.9 Gastro-esophageal reflux disease without esophagitis; E55.9 Vitamin D deficiency, unspecified
CPT/HCPCS: 58558; 81025; 88305; J1100; J1885; J2001; J2250; J2405; J2704

== ENCOUNTER 2021-04-17 12:29 | Outpatient (REF) | payer BC, SELFPAY ==
[2021-04-17 15:02] LABS: Hemoglobin A1C 5.8 % (<5.7)
[2021-04-18 00:53] LABS: Vitamin D 25 Total 37.8 ng/mL (30-100)
[2021-04-18 09:38] LABS: Hepatitis C Ab w Rflx HCV PCR Negative (Negative)
[2021-04-18 10:04] LABS: HIV-1/2 Ag & Ab Screen Negative (Negative)
== END 2021-04-17 12:30 | disposition home or self-care (01) ==
LOC: NCHCN 12:29
PROVIDERS: PCP Family Medicine; Visit Provider Family Medicine
DX: R73.03 Prediabetes (principal); Z86.39 Personal history of other endocrine, nutritional and metabolic disease; Z00.00 Encounter for general adult medical examination without abnormal findings
CPT/HCPCS: 82306; 86803; 87389; 83036

== ENCOUNTER 2021-11-26 04:27 | Outpatient (CLI) | payer OTHER, SELFPAY ==
--- NOTE | 2021-11-26 15:30 | DI.MAMMO_ITS ---
Exam(s) MAMMO SCREENING EXAM: MAMMO SCREENING CLINICAL HISTORY: SCREENING, Z12.31 TECHNIQUE: Bilateral full field digital CC and MLO mammographic images were obtained with 3D tomosyn thesis and utilizing computer aided detection (CAD). COMPARISON: Available for comparison. FINDINGS: Masses/Architectural Distortion: There has been interval increase in size of a partially obscured nod ule in the outer left breast. This now measures 1.4 cm. No other suspicious nodules or areas of arc hitectural distortion are present. Microcalcifications: No suspicious pleomorphic-type are seen. Skin Thickening/Nipple Retraction: None. IMPRESSION: 1. Interval increase in size of a nodule in the outer left breast on the CC view. 2. Spot compression views requested for further evaluation. Ultrasound should also be obtained at th at time. BI-RADS Category 0 - Assessment Incomplete: Need additional imaging evaluation Breast Density - Category B - Scattered areas of fibroglandular density Breast density category C or D implies that the patient has dense breast tissue. Dense breast tissue is very common and is not abnormal but dense breast tissue can make it harder to find cancer on a ma mmogram. Also, dense breast tissue may increase their breast cancer risk. This information about the result of the mammogram report was provided to the patient to raise their awareness. Use this report when you speak with the patient about their risks for breast cancer, which includes their family hist ory. At that time, you may recommend for more screening tests (Ultrasound or MRI) as they might be us eful based on their risk. A negative radiographic report should not delay biopsy if a dominant or clinically suspicious mass is present. Up to ten percent of cancers are not identified on mammography. A negative report may reinforce clinical impression. Adenosis and dense breasts may obscure an underlying neoplasm. False positive reports average 6 to 10%. Patient will receive a letter notifying them of these results.
== END 2021-11-26 04:47 ==
PROVIDERS: PCP Family Medicine; Visit Provider Family Medicine
DX: Z12.31 Encounter for screening mammogram for malignant neoplasm of breast (principal); R92.8 Other abnormal and inconclusive findings on diagnostic imaging of breast
CPT/HCPCS: 77063; 77067

== ENCOUNTER 2021-12-03 01:18 | Outpatient (CLI) | payer OTHER, SELFPAY ==
--- NOTE | 2021-12-03 13:00 | DI.MAMMO_ITS ---
Exam(s) MG MAMMO SCREEN CALL BACK UNI US BREAST LT COMPLETE EXAM: MG MAMMO SCREEN CALL BACK UNI - LEFT AND COMPLETE LEFT BREAST ULTRASOUND CLINICAL HISTORY: F/U ABNL MAMMO, LT BREAST, INCREASED SIZE OF NODULE IN OUTER BREAST CC VIEW. TECHNIQUE: Unilateral spot mammographic images obtained with 3D tomosynthesisand utilizing computer aided detection (CAD). . Complete LEFT breast Ultrasound was also performed, including all 4 quadrants, the retroareolar regio n, and the ipsilateral axilla. COMPARISON: Prior mammograms were reviewed. This additional imaging was performed due to findings described on the recent screening mammogram of 11/26/2021. FINDINGS: Diagnostic left breast mammogram: The nodular density in the upper-outer quadrant persists on spot view the. Therefore we proceeded wi breast ultrasound. COMPLETE LEFT BREAST ULTRASOUND: Ultrasound performed today reveals a 10 x 7 millimeter cyst at the 2 o'clock position which correspon ds to the finding on the mammogram, this located approximately 7 cm in from the nipple.. Another finding is at the 9 o'clock position where there is a 5 x 5 millimeter benign microcyst (whic h is not evident on 3D mammography). Most importantly, there no solid lesions in all 4 quadrants of the left breast. Retroareolar regions unremarkable and there is no adenopathy in the ipsilateral left axilla IMPRESSION: 1. There is a benign 1 cm cyst at the 2 o'clock position left breast which corresponds to the finding on the mammogram. 2. Additional finding is a 5 millimeter benign microcyst at the 9 o'clock position. 3. There are no solid lesions in the left breast. Appropriate follow-up , as discussed by myself with the patient today, is to keep this patient yearly mammogram schedule, with earlier imaging if a self detected breast change is noted.. The patient was informed of these findings and recommendations prior to leaving the department today. BI-RADS Category 2 - Benign Findings Breast Density - Category B - Scattered areas of fibroglandular density Breast density Category C or D implies that the patient has dense breast tissue. Dense breast tissue can make it harder to find cancer on a mammogram. Dense breast tissue is also associated with an incr eased risk of breast cancer. This information about the result of the mammogram report was provided to the patient to raise their awareness. Use this report when you speak with the patient about their risks for breast cancer, which includes their family history. At that time, you may recommend additional screening tests (Ultrasoun d or MRI) as these tests may add significant information. A negative radiographic report should not delay biopsy if a dominant or clinically suspicious mass is present. Up to ten percent of cancers are not identified on mammography. A negative report may reinforce clinical impression. Adenosis and dense breasts may obscure an underlying neoplasm. False positive reports average 6 to 10%. Patient will receive a letter notifying them of these results.
== END 2021-12-03 01:38 ==
PROVIDERS: PCP Family Medicine; Visit Provider Family Medicine
DX: Z12.31 Encounter for screening mammogram for malignant neoplasm of breast (principal); R92.8 Other abnormal and inconclusive findings on diagnostic imaging of breast; N60.12 Diffuse cystic mastopathy of left breast
CPT/HCPCS: 76642; 77063; 77067

== ENCOUNTER 2021-12-12 02:01 | Outpatient (CLI) | payer OTHER, SELFPAY ==
[2021-12-12 14:51] LABS: TSH (W/Ref FT4) 1.35 uIU/mL (0.36-3.74)
== END 2021-12-12 02:02 | disposition home or self-care (01) ==
LOC: LBO 02:01
PROVIDERS: PCP Family Medicine; Visit Provider Obstetrics & Gynecology
DX: R63.5 Abnormal weight gain; R23.2 Flushing
CPT/HCPCS: 36415; 84443

== ENCOUNTER → 2022-04-15 16:11 | Outpatient (CLI) | payer OTHER, SELFPAY ==
--- NOTE | 2022-04-15 | DI.RAD_ITS ---
Exam(s) XR FOOT LT COMPLETE EXAM: XR FOOT LT COMPLETE CLINICAL HISTORY: LEFT HEEL PAIN--M79.672. TECHNIQUE: 2D digital imaging was performed. Three views. COMPARISON: CR LEFT FOOT COMPLETE from 11/04/2012 FINDINGS: BONES: No acute fracture is present. No bony destructive lesion is seen. Mild spurring at the Calion s insertion on the calcaneus. Tiny plantar calcaneal spur. JOINTS: No dislocation present. SOFT TISSUE: Normal. IMPRESSION: Tiny heel spurs. DATA REPOSITORY: RADIATION DOSE DELIVERED:
== END ==
PROVIDERS: PCP Family Medicine; Visit Provider Nurse Practitioner Family
DX: M77.9 Enthesopathy, unspecified (principal); M79.672 Pain in left foot
CPT/HCPCS: 73630

== ENCOUNTER 2022-10-28 22:18 | Outpatient (REF) | payer OTHER, SELFPAY ==
[2022-10-28 19:42] LABS: Abs Immature Grans 0.02 10^3/uL (0.0-0.06); Absolute Basophil Count 0.07 10^3/uL (0.0-0.2); Absolute Eosinophil Count 0.35 10^3/uL (0.0-0.7); Absolute Lymphocyte Count 2.44 10^3/uL (1.2-3.4); Absolute Monocyte Count 0.58 10^3/uL (0.1-0.8); Absolute Neutrophil Count 4.53 10^3/uL (1.2-6.7); Basophils % 0.9; Eosinophils % 4.4; HGB 14.3 g/dL (11.2-15.7); Immature Grans % 0.3; Lymphocytes % 30.5; MCH 28.4 pg (27.0-33.0); MCHC 33.3 % (32.0-36.0); MCV 85 fL (80-95); MPV 13.2 fL (8.0-11.0); Monocytes % 7.3; Neutrophils % 56.6; Platelet Count 294 10^3/uL (130-400); RBC 5.04 10^6/uL (3.93-5.22); RDW 12.3 % (11.7-14.6); RDW-SD 37.9 fL; WBC 7.99 10^3/uL (4.4-10.8)
[2022-10-28 20:12] LABS: ALT 28 U/L (14-59); AST 32 U/L (15-37); Albumin 3.7 g/dL (3.4-5.0); Alkaline Phosphatase 110 U/L (46-116); Anion Gap 6.1 mmol/L (3-11); BUN 16 mg/dL (7-18); Bilirubin, Total 0.3 mg/dL (0.2-1.0); CO2 29.9 mmol/L (21.0-32.0); CREATININE 0.8 mg/dL (0.55-1.02); Calculated LDL 108 mg/dL (<100); Chloride 104 mmol/L (98-107); Cholesterol 173 mg/dL (<200); Estimated GFR 85.89 (mL/min/1.73m2); Glucose 99 mg/dL (74-106); HDL Cholesterol 33 mg/dL (40-60); Sodium 140 mmol/L (136-145); Total Protein 7.2 g/dL (6.4-8.2); Triglyceride 160 mg/dL (<150); Troponin I < 50 ng/L (<or=60)
== END 2022-10-28 22:19 | disposition home or self-care (01) ==
LOC: NCHCN 22:18
PROVIDERS: PCP Family Medicine; Visit Provider Nurse Practitioner Family
DX: R07.89 Other chest pain (principal)
CPT/HCPCS: 80053; 80061; 84484; 85025

== ENCOUNTER 2022-12-19 14:47 | Outpatient (CLI) | payer OTHER, SELFPAY ==
--- NOTE | 2022-12-19 | DI.RAD_ITS ---
Exam(s) XR TIB/FIB LT XR KNEE LT 3V AP,LAT,BAILEY EXAM: XR KNEE LT 3V AP,LAT,BAILEY and XR tib/fib LT CLINICAL HISTORY: LT KNEE PAIN, M25.562. TECHNIQUE: 2D digital imaging was performed of the left tibia/fibula and knee. Five images were obt ained. AP, lateral and PA tunnel views were obtained. COMPARISON: CR XR KNEE LT 4V AP,LAT,BAILEY,PAT from 10/02/2020 FINDINGS: BONES: No acute fracture is present. No bony destructive lesion is seen. JOINTS: The knee is normally aligned. No joint effusion is seen. There is mild narrowing of the media l femoral tibial joint space. There is mild spurring of the posterior patella. SOFT TISSUE: Normal. IMPRESSION: 1. No acute abnormality. 2. Mild degenerative changes of the knee. DATA REPOSITORY: RADIATION DOSE DELIVERED:
== END 2022-12-19 15:07 ==
LOC: DI 14:47
PROVIDERS: PCP Family Medicine; Visit Provider Physician Assistant Medical
DX: M25.562 Pain in left knee (principal)
CPT/HCPCS: 73562; 73590

== ENCOUNTER 2023-02-24 02:48 | Outpatient (CLI) | payer OTHER, SELFPAY ==
--- NOTE | 2023-02-24 12:28 | DI.MAMMO_ITS ---
Exam(s) MAMMO SCREENING EXAM: MAMMO SCREENING CLINICAL HISTORY: SCREENING, Z12.39. TECHNIQUE: Bilateral full field digital CC and MLO mammographic images were obtained with 3D tomosyn thesis and utilizing computer aided detection (CAD). COMPARISON: Prior mammograms were reviewed. FINDINGS: In the left breast the previously described nodular density has increased in size, presently measurin g 1.8 by 1.7 cm. Recommend repeat ultrasound. This is located 10 cm in the nipple in the lateral aspect of the left breast. No other significant l eft breast findings. In the right breast there are few benign-appearing nodular densities noted. One of these has since i ncreased in size, presently measuring 6 x 4 mm, slightly lobulated and located 6 cm in from the nippl e on the CC view, slightly lateral of center. Spot compression view and ultrasound recommended. There are no malignant-appearing microcalcification groups in either breast. There is no significant architectural distortion nor skin thickening-retraction. IMPRESSION: Increasing size of nodules, one in each breast. Spot compression views and bilateral breast ultrasou nd recommended. BI-RADS Category 0 - Assessment Incomplete: Need additional imaging evaluation Breast Density - Category B - Scattered areas of fibroglandular density Breast density Category C or D implies that the patient has dense breast tissue. Dense breast tissue can make it harder to find cancer on a mammogram. Dense breast tissue is also associated with an incr eased risk of breast cancer. This information about the result of the mammogram report was provided to the patient to raise their awareness. Use this report when you speak with the patient about their risks for breast cancer, which includes their family history. At that time, you may recommend additional screening tests (Ultrasoun d or MRI) as these tests may add significant information. A negative radiographic report should not delay biopsy if a dominant or clinically suspicious mass is present. Up to ten percent of cancers are not identified on mammography. A negative report may reinforce clinical impression. Adenosis and dense breasts may obscure an underlying neoplasm. False positive reports average 6 to 10%. Patient will receive a letter notifying them of these results.
== END 2023-02-24 03:08 ==
LOC: DI 02:48
PROVIDERS: PCP Family Medicine; Visit Provider Nurse Practitioner Family
DX: Z12.31 Encounter for screening mammogram for malignant neoplasm of breast (principal)
CPT/HCPCS: 77063; 77067

== ENCOUNTER 2023-03-03 02:56 | Outpatient (CLI) | payer OTHER, SELFPAY ==
--- NOTE | 2023-03-03 | DI.US_ITS ---
Exam(s) MG MAMMO SCREEN CALL BACK UNI US BREAST RT LIMITED US BREAST LT LIMITED EXAM: MG MAMMO SCREEN CALL BACK UNI CLINICAL HISTORY: F/U MAMMO, INCREASING SIZE OF NODULE RT. TECHNIQUE: Craniocaudal and mediolateral oblique spot compression digital Mammography views of the r ightbreast with Tomosynthesis and bilateral breast ultrasound. COMPARISON: US US BREAST LT LIMITED from 03/03/2023 US US BREAST RT LIMITED from 03/03/2023 FINDINGS: Mammography/Tomosynthesis: Masses: Small circumscribed ovoid nodule with a central fatty hilum in the central right breast consi stent with an intramammary lymph node. Architectural Distortion: None seen. Microcalcifictions: No suspicious pleomorphic-type are seen. Skin Thickening/Nipple Retraction: None. Right breast US: Echotexture: Normal appearance of the glandular tissue. Shadowing: No suspicious foci. Cyst: None Solid lesions: None seen. Ductal dilation: None. Left breast ultrasound: 1.8 x 0.8 x 1.7 centimeter simple cyst in the 2 o'clock position 7 cm from the nipple. No solid masses. No ductal dilatation. IMPRESSION: 1. No evidence of malignancy is noted. 2. Unless there is more urgent need, follow-up screening mammography is recommended, as per [place] [employer] guidelines. 3. The findings were discussed with the patient on the date of the examination. BI-RADS Category 2 - Benign Findings Breast Density - Category B - Scattered areas of fibroglandular density A negative radiographic report should not delay biopsy if a dominant or clinically suspicious mass is present. Up to ten percent of cancers are not identified on mammography. A negative report may reinforce clinical impression. Adenosis and dense breasts may obscure an underlying neoplasm. False positive reports average 6 to 10%. Patient will receive a letter notifying them of these results.
== END 2023-03-03 03:16 ==
LOC: DI 02:58
PROVIDERS: PCP Family Medicine; Visit Provider Family Medicine
DX: Z12.2 Encounter for screening for malignant neoplasm of respiratory organs (principal); N63.11 Unspecified lump in the right breast, upper outer quadrant
CPT/HCPCS: 76642; 77063; 77067

== ENCOUNTER 2023-05-19 15:14 | Outpatient (REF) | payer OTHER, SELFPAY | END 2023-05-19 15:15 | disposition home or self-care (01) | LOC: NCHCN 15:14 | PROVIDERS: PCP Family Medicine; Visit Provider Nurse Practitioner Family | DX: R30.0 Dysuria (principal); R31.9 Hematuria, unspecified | CPT/HCPCS: 87077; 87086; 87186 ==

== ENCOUNTER 2023-08-18 12:13 | Outpatient (REF) | payer OTHER, SELFPAY ==
[2023-08-18 15:59] LABS: Hemoglobin A1C 5.6 % (<5.7)
[2023-08-18 16:05] LABS: Vitamin D 25 Total 34.5 ng/mL (30-100)
[2023-08-18 17:07] LABS: TSH (W/Ref FT4) 1.28 uIU/mL (0.36-3.74)
== END 2023-08-18 12:14 | disposition home or self-care (01) ==
LOC: NCHCN 12:13
PROVIDERS: PCP Family Medicine; Visit Provider Nurse Practitioner Family
DX: R63.5 Abnormal weight gain (principal); E55.9 Vitamin D deficiency, unspecified; R73.03 Prediabetes
CPT/HCPCS: 82306; 83036; 84443

== ENCOUNTER 2023-08-26 15:19 | Outpatient (REF) | payer OTHER, SELFPAY ==
[2023-08-26 19:07] LABS: Bilirubin Negative (Negative); Blood Negative (Negative); Clarity Clear (Clear); Glucose Negative (Negative); Ketones Negative (Negative); Leukocyte Esterase Negative (Negative); Nitrite Negative (Negative); Specific Gravity <= 1.005 (1.005-1.025); Urobilinogen 0.2 mg/dL (Up to 0.2); pH 5.5 (5-8)
== END 2023-08-26 15:20 | disposition home or self-care (01) ==
LOC: NCHCN 15:19
PROVIDERS: PCP Family Medicine; Visit Provider Nurse Practitioner Family
DX: R30.0 Dysuria (principal)
CPT/HCPCS: 81003

== ENCOUNTER 2023-09-04 11:56 | Outpatient (REF) | payer OTHER, SELFPAY ==
--- NOTE | 2023-09-04 11:10 | ENDOMET_PTH ---
PATIENT: Ute Balbuena LOC: [facility] U#:[id number] AGE/SX: 57/F ROOM: RE09/04/[address]: Esther Monroe DO : 1965 BED: DIS: 09/04/2023 SPEC #: [id number] RECD: 09/04/23 12:51 STATUS: JIHAN REQ #: [id number] JAKY: 09/04/23 11:[address]: Esther Monroe DEPT: Surgical Specimen RECD BY: Quin Gifford ENTERED: 09/04/23 12:52 SP TYPE: Endomet OTHR DR: Nikole Bautista Tissues: 1 - ENDOMETRIUM BX/SAGAR Procedures: GROSS AND MICRO LEVEL 4 Comments: [id number]
== END 2023-09-04 11:57 | disposition home or self-care (01) ==
LOC: LBN 11:56
PROVIDERS: PCP Family Medicine; Visit Provider Obstetrics & Gynecology
DX: R93.89 Abnormal findings on diagnostic imaging of other specified body structures (principal); N95.0 Postmenopausal bleeding
CPT/HCPCS: 88305

== ENCOUNTER 2023-12-19 10:51 | Outpatient (REF) | payer OTHER, SELFPAY ==
--- NOTE | 2023-12-18 11:30 | SKI_PTH ---
PATIENT: Ute Balbuena LOC: [facility] U#:[id number] AGE/SX: 58/F ROOM: RE12/19/[address]: Marley De La Vega : 1965 BED: DIS: 12/19/2023 SPEC #: [id number] RECD: 12/21/23 12:45 STATUS: JIHAN REQ #: [id number] JAKY: 12/18/23 11:[address]: Marley De La Vega DEPT: Surgical Specimen RECD BY: Quin Gifford ENTERED: 12/21/23 12:45 SP TYPE: PERFECTO JIMENEZ DR: SNOW MARAVILLA Tissues: 1 - SKIN BIOPSY(SHAVE/PUNCH) Procedures: SKIN LEVEL 4 Comments: [id number]
== END 2023-12-19 10:52 | disposition home or self-care (01) ==
LOC: LBN 10:51
PROVIDERS: PCP Nurse Practitioner Family; Visit Provider Physician Assistant Medical
DX: D18.01 Hemangioma of skin and subcutaneous tissue (principal)
CPT/HCPCS: 88305

== ENCOUNTER → 2024-02-10 00:20 | Outpatient (CLI) | payer OTHER, SELFPAY ==
--- NOTE | 2024-02-10 | DI.US_ITS ---
APPROVED REPORT EXAM: Comprehensive 2D, Doppler, and color-flow Echocardiogram Patient Location: Out-Patient Felting Machine Operator Helper: Stephanie Barroso RDCS (AE) Indications: Family history of sudden cardiac Other Information Study Quality: Adequate Conclusion Normal left ventricular wall chamber size. Ejection fraction is 58%. Wall motion is normal Normal right ventricular size and function Both atria are normal in size There is no structural or hemodynamically significant valvular disease Wall motion Left Ventricle The left ventricle is normal size. The left ventricular systolic function is normal. The left ventric ular ejection fraction is within the normal range. There is normal left ventricular wall thickness. T here is normal LV segmental wall motion. There is no ventricular septal defect visualized. LVEF is 58 %. Right Ventricle The right ventricle is normal size. The right ventricular systolic function is normal. Atria The left atrium size is normal. The right atrium size is normal. The interatrial septum is intact wit h no evidence for an atrial septal defect. Aortic Valve The aortic valve is normal in structure. Aortic valve is trileaflet. There is no aortic valvular sten osis. No aortic regurgitation is present. Mitral Valve The mitral valve is normal in structure. No evidence of mitral valve stenosis. Trace mitral regurgita tion. Tricuspid Valve The tricuspid valve is normal in structure. There is no tricuspid valve stenosis. Mild tricuspid regu rgitation. Unable to assess PA pressure. Pulmonic Valve The pulmonary valve is normal in structure. There is no pulmonic valvular stenosis. There is no pulmo jake valvular regurgitation. Great Vessels The aortic root is normal in size. The ascending aorta is normal Aortic arch is normal in caliber. IV C is normal in size and collapses >50% with inspiration. Pericardium There is no pericardial effusion. 2D Dimensions IVSD d PLAX 0.99 cm F: 0.6-1.0 Ao Root d 2.71 cm F: 2.7 - 3.3 LVPW d PLAX 0.99 cm F: 0.6 - 1.0 Ao Asc Diam d 3.20 cm F: 2.3 - 3.1 LVID d PLAX 4.54 cm F: 3.8 - 5.2 LVDs 3.09 cm F: 2.2 - 3.5 LV EF Teichholz 60.3 % FS 32.07 % LV EDV (Teich) 94.5 mL LV ESV (Teich) 37.5 mL M-Mode TAPSE 2.35 cm (M/F) >1.7 Auto EF LV EDV A4C 130.6 mL LV EDV A2C 133.8 mL LV EDV BP 131.8 mL LV ESV A4C 53.7 mL LV ESV A2C 56.1 mL LV ESV BP 55.3 mL LVEF(%) A4C 58.9 % LVEF(%) A2C 58.1 % LVEF(%) BP 58.1 % LV SV A4C 76.9 ml LV SV A2C 77.8 ml LV SV BP 76.5 ml LV CO A4C 5.1 L/min LV CO A2C 5.1 L/min LV CO BP 5.1 L/min HR A4C 66.79 BPM HR A2C 65.08 BPM LV EDV Index (BP) LA Volume LA Length A4C 5.2 cm LA Length A2C 5.0 cm LA Area A4C s 16.95 cm2 LA Area A2C s 17.97 cm2 LA Vol A4C A-L 47.01 mL LA Vol A2C A-L 55.28 mL LA Vol Biplane A-L 52.2 mL LA Vol/BSA A4C A-L LA Vol/BSA A2C A-L LA Vol/BSA BP A-L 24.1 mL/m2 LA Vol A4C MOD 42.5 mL LA Vol A2C MOD 50.8 mL LA Vol BP MOD 47.4 mL RA Volume RA Area A4C 10.7 cm2 RA ESV A4C (A-L) 24.1mL RA Vol/BSA A4C A-L RA Length A4C 4.1 cm RA ESV A4C (MOD) 23.2mL LV Diastology MV E' medial 0.070 (>0.07 m/s) MV E Vmax 0.82 (0.4-1.3 m/s) MV E/E' MED 11.68 (<14) MV A Vmax 0.80 (0.4-1.3 m/s) MV E' lateral 0.097 (>0.1 m/s) E/A Ratio 1.0 MV E/E' LAT 8.46 (<14) MV E' Average 0.084 m/s MV E/E'(average) 9.82 Aortic Valve AoV Vmax 1.42 m/s LVOT Vmax 0.97 m/s AoV Peak Grad 8.0 mmHg LVOT Peak Grad 3.8 mmHg AoV Area (Vmax) 2.12 cm2 LVOT VTI 0.212 m AoV VTI 0.324 m LVOT Mean Grad 2.3 mmHg AoV Mean Cl. 0.99 m/s LVOT SV 65.48 mL AoV Mean Grad 4.5 mmHg LVOT Diam s 1.95 cm AoV Area (VTI) 2.02 cm2 Velocity Ratio 0.68 Mitral Valve MV DT 175 (160-240 msec) MV Vmax TIPS 0.80 m/s MV Mean Grad 1.3 (<2mmHg) MV VTI 0.246 m Pulmonary Valve PV Vmax 0.71 (0.5-1.5 m/s) RVOT Vmax 0.69 m/s PV Peak Grad 2.0 mmHg RVOT Peak Gr. 1.9 mmHg PV Mean Cl 0.49 m/s RVOT VTI 0.159 m PV Mean Grad 1.1 mmHg RVOT Mean Gr. 0.9 mmHg Tricuspid Valve RA Pressure 3.00 mmHg TV S' 0.13 m/s
== END ==
PROVIDERS: PCP Nurse Practitioner Family; Visit Provider Nurse Practitioner Family
DX: Z82.41 Family history of sudden cardiac death (principal)
CPT/HCPCS: 93306

== ENCOUNTER → 2024-02-29 00:50 | Outpatient (CLI) | payer OTHER, SELFPAY ==
--- NOTE | 2024-02-29 | ETT_ITS ---
APPROVED REPORT Exam: Exercise Treadmill Patient Location: Out-Patient Room/Bed: Stress Nurse: Joao Oliver RN and Jacqueline Newell RN Ordering Provider:SNOW MARAVILLA, Contact Number: [phone] BMI: 39.21 Baseline Rhythm: Sinus Rhythm. Comment: Rare PVC. Indications: Family History of Sudden Cardiac Arrest. Medical History Medical History: Allergic Asthma; Sleep Apnea; Mild COPD; Depression; GERD; Obesity. Cardiac Medications: Famotidine; Omeprazole; Proair; Progesterone; Sertraline. Allergies: Penicillins. Cardiac Risk Factors: Family History; Asthma; COPD; Obesity. Previous Cardiac Procedures: None. Pretest Chest Pain Characteristics: None. Exercise History: Indeterminate. Physical Disabilities: None. Lung Sounds: Diminished in the bilateral posterior bases, clear bilaterally throughout, anterior and posterior otherwise. Heart Sounds: S1 and S2 auscultated. Stress Test Details Test: Exercise stress testing was performed using a Ebenezer protocol. Rest Stress HR Resting HR Supine: 73 bpm Max Heart Rate (APMHR): 162 bpm Resting HR Standin bpm Target HR (85% APMHR): 138 bpm Max HR Achieved: 140 bpm % of APMHR: 86 Recovery HR: 85 bpm HR response to stress: Normal HR response to stress. BP Resting BP Supine: 120/82 mmHg Resting BP Standin/92 mmHg Max BP: 192/88 mmHg Recovery BP: 126/84 mmHg BP response to stress: Normal blood pressure response to stress. ECG Resting ECG: Sinus Rhythm. Ectopy: Rare PVC. Stress ECG: Sinus Tachycardia. ST Change: No significant ST segment changes noted. Arrhythmia: Rare PVC's. Recovery ECG: Sinus Rhythm. Recovery ST Change: No significant ST segment changes noted. Recovery Arrhythmia: None. Clinical Reason for Termination: Target HR Achieved; Fatigue; Dyspnea. Stress Symptoms: General Fatigue; Dyspnea; Left Arm Achiness. Exercise duration: 04 min44 sec Highest Stage Reached: Stage 2: 2.5 mph at 12% grade. Exercise capacity: 6.69 METs Angina Score: None Rate Pressure Product: 02461 Stress ECG Conclusion 1. Resting electrocardiogram was normal 2. Patient exercised on the Ebenezer protocol and completed a workload of 6.69 METS 3. Normal blood pressure response to exercise 4. Rapid heart rate response to exercise suggest deconditioning. The patient achieved 86% of predict ed heart rate for age 5. There was no electrocardiographic evidence of myocardial ischemia 6. There were no significant dysrhythmias Stress Test Summary STAGE Time (mins) Speed (mph) Grade (%) HR BP SpO2 SYMPTOMS METS Supine 73 120/82 96 Standing 85 132/92 96 1 3 1.7 10 Pt. complaining of mild shortness of breath. 4.5 2 6 2.5 12 140 Pt. complaining of moderate shortness of breath and left arm achiness. 7 1 min recovery 107 192/88 96 Pt. complaining of moderate shortness of breath, but states th at the left arm achiness is lessening. 3 min recovery 76 148/102 Pt. complaining of mild shortness of breath, and states that the left arm achiness is gone. 6 min recovery 76 140/102 Pt. states that the shortness of breath is gone. 9 min recovery 85 126/84 96 All s/s resolved at this time. Pt. conversing pleasantly with nursing staff upon leaving the Stress Lab. Pt. left ambulatory in no a pparent distress.
== END ==
PROVIDERS: PCP Nurse Practitioner Family; Visit Provider Nurse Practitioner Family
DX: Z82.41 Family history of sudden cardiac death (principal)
CPT/HCPCS: 93017

== ENCOUNTER 2024-04-14 01:53 | Outpatient (CLI) | payer OTHER, SELFPAY ==
--- NOTE | 2024-04-14 | DI.NM_ITS ---
APPROVED REPORT Exam: Exercise Treadmill Patient Location: Out-Patient Room/Bed: Stress Nurse: Mar Newell RN Ordering Provider:SNOW MARAVILLA, Contact Number: [phone] BMI: 38.73 Baseline Rhythm: Sinus Rhythm Indications: Chest pain, aching arm, dyspnea, family history Medical History Medical History: Obesity, depression, HARI, asthma, gerd, parasthesia upper limb, pre DM Cardiac Medications: None Allergies: PCN Cardiac Risk Factors: +family history, +Pre DM, obesity, +asthma Previous Cardiac Procedures: None Pretest Chest Pain Characteristics: None Exercise History: Indeterminate Physical Disabilities: None Lung Sounds: LCTA Heart Sounds: Regular, S1/S2 Stress Test Details Test: Exercise stress testing was performed using a Ebenezer protocol. Nuclear Acquisition: Rest Tc-99m/Stress Tc-99m 1 day Rest Isotope: Tc-99m Sestamibi. Dose: 10.4 Date: 04/14/2024 Injection Time: 08:40 Stress Isotope: Tc-99m Sestamibi. Dose: 32.8 Date: 04/14/2024 Injection Time: 09:55 HR Resting HR Supine: 79 bpm Max Heart Rate (APMHR): 162.057867 bpm Resting HR Standin bpm Target HR (85% APMHR): 137.040117 bpm Max HR Achieved: 143 bpm % of APMHR: 88.27 Recovery HR: 78 bpm HR response to stress: Normal HR response to stress BP Resting BP Supine: 142/90 mmHg Resting BP Standin/98 mmHg Max BP: 218/92 mmHg Recovery BP: 146/96 mmHg BP response to stress: Normal blood pressure response to stress. ECG Resting ECG: Sinus Rhythm Ectopy: None Stress ECG: Sinus Tachycardia ST Change: Upsloping ST depression Lead(s): II, III, aVF, V3, V4,V5,V6 Stage: [address] Deviation: 1-1.5 mm Arrhythmia: None Recovery ECG: Sinus Rhythm Recovery ST Change: ST changes resolved in recovery, returning to baseline Recovery Arrhythmia: None Clinical Reason for Termination: Fatigue, Target HR Achieved Stress Symptoms: Dyspnea, General Fatigue, Dizziness, Chest pain in recovery not during test Exercise duration: 6 min58 sec Highest Stage Reached: Stage 3: 3.4 mph at 14% grade. Exercise capacity: 8.5 METs Angina Score: None Lobo Treadmill Score: 2.5 Rate Pressure Product: 66441 Stress ECG Conclusion 1. Resting electrocardiogram was normal 2. Patient exercised on the Ebenezer protocol completed workload of 8.5 METS 3. Normal heart rate and blood pressure response to exercise. The patient achieved 88% of predicted heart rate for age 4. At peak exercise there were diffuse nondiagnostic ST-T abnormalities 5. See MPI report Lobo Treadmill Score is 2.5 which is Moderate risk. Stress Test Summary STAGE Time (mins) Speed (mph) Grade (%) HR BP SpO2 SYMPTOMS METS Supine 79 142/90 95% Standing 82 158/98 1 3 1.7 10 121 192/98 4.5 2 6 2.5 12 135 7 3 9 3.4 14 140 10 1 min recovery 104 218/92 97% Dyspnea, Fatigue 3 min recovery 77 164/90 Chest pain 3/10 6 min recovery 78 146/96 97% Chest pain resolved Patient presented for stress test today. Plesant and cooperative with care. Completed stress portion of the test using the treadmill and Ebenezer protocol. Able to achieve THR. Symptoms during exercise wer e fatigue and dyspnea. Reported some dizziness upon the cessation of treadmill that resolved with res t. Reported chest hurts, 3/10 at 2 minute recovery julio. Chest discomfort resolved and was no longe r present by 5-6 minutes of recovery. Patient left ambulatory in no apparent distress. MPI Conclusion Myocardial perfusion is normal. There is no ischemia or evidence of prior infarction Ejection fraction is 58% with normal wall motion Radiologist Interpretation Radiologist agrees with Dry Kiln Feeder's Interpretation. Radiologist Interpretation by: Maureen Robledo MD Interpretation Date/Time: 04/15/2024 12:57:22
== END 2024-04-14 02:13 ==
LOC: DI 01:53
PROVIDERS: PCP Nurse Practitioner Family; Visit Provider Nurse Practitioner Family
DX: R07.89 Other chest pain (principal)
CPT/HCPCS: 78452; 93017

== ENCOUNTER 2024-04-26 11:30 | Outpatient (REF) | payer OTHER, SELFPAY ==
--- NOTE | 2024-04-26 10:40 | ENDOMET_PTH ---
PATIENT: Ute Balbuena LOC: [facility] U#:[id number] AGE/SX: 58/F ROOM: RE04/26/[address]: Esther Monroe DO : 1965 BED: DIS: 04/26/2024 SPEC #: [id number] RECD: 04/26/24 12:49 STATUS: SOUBlossom REQ #: [id number] JAKY: 04/26/24 10:[address]: Esther Monroe DEPT: Surgical Specimen RECD BY: Quin Gifford ENTERED: 04/26/24 12:50 SP TYPE: Endomet OTHR DR: Emma Larson Tissues: 1 - ENDOMETRIUM BX/SAGAR Procedures: GROSS AND MICRO LEVEL 4 Comments: [id number]
== END 2024-04-26 11:31 | disposition home or self-care (01) ==
LOC: LBN 11:30
PROVIDERS: PCP Nurse Practitioner Family; Visit Provider Obstetrics & Gynecology
DX: R93.89 Abnormal findings on diagnostic imaging of other specified body structures (principal); N95.0 Postmenopausal bleeding
CPT/HCPCS: 88305

== ENCOUNTER 2024-05-23 01:50 | Outpatient (CLI) | payer OTHER, SELFPAY ==
--- NOTE | 2024-05-23 | DI.CT_ITS ---
Exam(s) CT CHEST W EXAM: CT CHEST W CLINICAL HISTORY: Ovoid lesion, approximately 2.7 x 1.8 cm, lt upper axillary region, R22.32-. TECHNIQUE: Multi planar reconstructions were performed. CONTRAST MATERIAL: Omnipaque 350; 75 cc COMPARISON: CT CT renal colic wo from 06/03/2018 FINDINGS: CHEST: LUNGS: Mild benign-appearing increased markings noted in the inferior lingular segment of the left ofelia ng. No other significant focal lung findings and no pleural effusions. No findings in the trachea a nd mainstem bronchi. MEDIASTINUM: There is no hilar nor mediastinal adenopathy. No subcarinal adenopathy. Visualized thyr oid unremarkable. No supraclavicular adenopathy. Right axilla unremarkable. There is an abnormal d ensity in the lower left axilla measuring 2.3 x 1.8 by 3 cm craniocaudalprobably a pathologic lymph n ode. CARDIAC: Heart size is normal. There is no pericardial effusion.Caliber of the thoracic aorta is wit hin normal limits. VISUALIZED UPPER ABDOMEN:No adrenal masses. No splenomegaly. Hypodensity-probable benign cyst in th e right hepatic lobe measuring 1.3 cm noted, OSSEOUS: No significant osseous lesions.No fractures.. IMPRESSION: 1. There is an abnormal density in the most inferior aspect of the left axilla which measures 2.3 x 1 .8 x 3 cm and is so dense to adjacent muscular. Probably represents an enlarged lymph node. There a re no other enlarged lymph nodes higher up in the left axilla nor in the opposite-right axilla and th ere is no supraclavicular adenopathy nor mediastinal-hilar adenopathy. RADIATION DOSE DELIVERED: 224.52mGy.cm Total DLP DATA REPOSITORY: All CT scans at this facility are submitted to the National Radiology Data Registry (NRDR) Dose Index Registry (DIR) with the [employer] (ACR). RADIATION OPTIMIZATION: All CT scans at this facility use at least one of these dose optimization te chniques: automated exposure control; mA and/or kV adjustment per patient size (includes targeted exa ms where dose is matched to clinical indication); or iterative reconstruction.
[2024-05-23] MEDS: Omnipaque 350 MG/ML 100 ML BTL 70 ML IJ (10:27)
[2024-05-23] MEDS: Normal Saline - Diluent 50 ML VIAL IJ (10:29)
[2024-05-23] MEDS: Normal Saline Flush 10 ML SYR IVP (10:30)
== END 2024-05-23 02:10 ==
LOC: DI 01:50
PROVIDERS: PCP Nurse Practitioner Family; Visit Provider Nurse Practitioner Family
DX: R59.0 Localized enlarged lymph nodes (principal)
CPT/HCPCS: 71260; J3490

== ENCOUNTER 2024-05-31 23:59 | Outpatient (REF) | payer OTHER, SELFPAY ==
[2024-05-31 16:01] LABS: Abs Immature Grans 0.02 10^3/uL (0.0-0.06); Absolute Basophil Count 0.07 10^3/uL (0.0-0.2); Absolute Lymphocyte Count 2.06 10^3/uL (1.2-3.4); Absolute Neutrophil Count 5.89 10^3/uL (1.2-6.7); Basophils % 0.8 %; Eosinophils % 4.4 %; HGB 14.7 g/dL (11.2-15.7); Immature Grans % 0.2 %; Lymphocytes % 22.5 %; MCH 29.1 pg (27.0-33.0); MCV 91 fL (80-95); MPV 12.8 fL (8.0-11.0); Monocytes % 7.7 %; Neutrophils % 64.4 %; Platelet Count 327 10^3/uL (130-400); RBC 5.05 10^6/uL (3.93-5.22); RDW 12.7 % (11.7-14.6); RDW-SD 42.1 fL; WBC 9.14 10^3/uL (4.4-10.8)
[2024-05-31 18:57] LABS: Hemoglobin A1C 5.2 % (<5.7)
== END 2024-06-01 | disposition home or self-care (01) ==
LOC: NCHCN 23:59
PROVIDERS: PCP Nurse Practitioner Family; Visit Provider Nurse Practitioner Family
DX: N92.0 Excessive and frequent menstruation with regular cycle (principal); R73.03 Prediabetes
CPT/HCPCS: 83036; 85025

== ENCOUNTER 2024-06-14 04:39 | Outpatient (CLI) | payer OTHER, SELFPAY ==
[2024-06-14 08:50] LABS: Abs Immature Grans 0.01 10^3/uL (0.0-0.06); Absolute Basophil Count 0.06 10^3/uL (0.0-0.2); Absolute Eosinophil Count 0.34 10^3/uL (0.0-0.7); Absolute Lymphocyte Count 2.12 10^3/uL (1.2-3.4); Absolute Monocyte Count 0.38 10^3/uL (0.1-0.8); Absolute Neutrophil Count 6.47 10^3/uL (1.2-6.7); Basophils % 0.6 %; Eosinophils % 3.6 %; HCT 46.4 % (36.0-46.0); HGB 15.4 g/dL (11.2-15.7); Immature Grans % 0.1 %; Lymphocytes % 22.6 %; MCH 29.6 pg (27.0-33.0); MCHC 33.2 % (32.0-36.0); MCV 89 fL (80-95); MPV 10.4 fL (8.0-11.0); Monocytes % 4.1 %; Platelet Count 364 10^3/uL (130-400); RBC 5.21 10^6/uL (3.93-5.22); RDW 12.6 % (11.7-14.6); RDW-SD 41.1 fL; WBC 9.38 10^3/uL (4.4-10.8)
== END 2024-06-14 04:40 | disposition home or self-care (01) ==
LOC: LBO 04:40
PROVIDERS: PCP Nurse Practitioner Family; Visit Provider Obstetrics & Gynecology
DX: Z01.818 Encounter for other preprocedural examination (principal)
CPT/HCPCS: 36415; 86850; 86900; 86901; 85025

== ENCOUNTER 2024-06-15 11:51 | Observation (INO) | payer OTHER, SELFPAY ==
[2024-06-15] VITALS (41 sets, daily range): BP systolic 99–147; BP diastolic 52–125; PULSE 71–94; RESP 11–23; TEMP 36–37.2; O2SAT 92–97; BMI 39.4
--- NOTE | 2024-06-15 07:19 | ANES.PREOP_ITS ---
General Info Date of Service Date Performed: 06/15/24 Height: 5 ft 6 in Weight: 110.847 kg Body Mass Index (BMI): 39.4 Surgical Procedure: Operation Date: 06/15/24 08:55 Proposed Procedure Side Surgeon p Hysterectomy Vaginal Laparoscopic Assist/BSO/Cysto, Possible NIKOLAI,BSO Esther Monroe DO Meds Allergies and Home Medications Allergies Allergy/AdvReac Type Severity Reaction Status Date / Time Penicillins Allergy Severe Other (See Verified 06/15/24 07:57 Comment) Home Medication ?Medication ?Instructions ?Recorded omeprazole 40 mg capsule,delayed 40 mg PO DAILY 11/04/12 release (Prilosec) sertraline 50 mg tablet 50 mg PO HS 08/26/18 ibuprofen 800 mg tablet (IBU) 800 mg PO Q8H #60 tabs 05/26/24 norethindrone acetate 5 mg tablet 10 mg (2 x 5 mg) PO .Twice daily 06/01/24 #60 tabs aspirin 81 mg tablet,delayed mg Heart 06/15/24 release (Harlan Low Dose Aspirin) calcium 300 mg-D3 20 mcg-magnesium 1 tab PO DAILY 06/15/24 25 mg-coppr 0.5 [id number] tablet (Caltrate-D3 Plus Minerals) montelukast 10 mg tablet 10 mg DAILY 06/15/24 Current Visit Medications: Current Medications Generic Name Dose Route Start Last Admin Trade Name Freq PRN Reason Stop Dose Admin Cefazolin Sodium/Dextrose 2 gm in 50 mls @ 100 mls/hr 06/15/24 06:00 Ancef Duplex IVPB 06/15/24 23:59 PREOP LEO Ringer's Solution 500 mls @ 30 mls/hr 06/15/24 07:15 IV 07/15/24 07:14 INFUSION [facility] IV Miscellaneous Supplies 1 each 06/15/24 06:00 Iv Access IV 06/15/24 23:59 DIRECTED LEO Sodium Chloride 0 ml 06/15/24 06:00 Normal Saline Flush 10 Ml Syr IV 06/15/24 23:59 PRN PRN Sodium Chloride 0 ml 06/15/24 06:00 Normal Saline 10 Ml Vial IJ 06/15/24 23:59 DIRECTED PRN Sterile Water 0 ml 06/15/24 06:00 Water,Injection,Sterile 10 Ml Vial IJ 06/15/24 23:59 DIRECTED PRN PFSH Active Problems Active Problems: Problem Status Onset Code Thickened endometrium Acute R93.89 Menopausal symptoms Acute N95.1 Hot flashes Acute R23.2 Pelvic pain Acute R10.2 Cervical lymphadenopathy Acute R59.0 Neck pain Acute M54.2 Neck mass Acute R22.1 Depression Chronic Medical History Medical History Sleep apnea Postmenopausal bleeding Endometrial biopsy 09/04/2023 Hiatal hernia Fibrocystic changes of left breast Headache History of vitamin D deficiency Stage 1 mild COPD by GOLD classification Flank pain Allergic asthma GERD Surgical History Surgical History Postoperative state Status post hysteroscopy with dilation and curettage- 06/14/24 pt. states she has a hard time waking H/O colonoscopy 10/11/2007 Dr Pablito Adams for blood per rectum, negative colo, blood likely from hemorrhoids Ligation of fallopian tube Dilation and curettage after SAB Anal fissure repair (~2003) Tobacco Smoking/Tobacco Use Status: Never Alcohol Alcohol Intake: current Alcohol intake frequency: a few times a week Alcohol type: hard liquor Substance Use Substance use: Never Substance use type: does not use Vital Signs and Lab Results Lab Results Blood Type / Crossmatch: Antibody Screen NEGATIVE 06/14/24 Complete Blood Count: White Blood Count 9.38 10^3/uL (4.4-10.8) 06/14/24 08:43 Red Blood Count 5.21 10^6/uL (3.93-5.22) 06/14/24 08:43 Hemoglobin 15.4 g/dL (11.2-15.7) 06/14/24 08:43 Hematocrit 46.4 % (36.0-46.0) H 06/14/24 08:43 Platelet Count 364 10^3/uL (130-400) 06/14/24 08:43 Complete Metabolic Panel: Hemoglobin A1c 5.2 % (<5.7) 05/31/24 12:15 Liver Function Panel: No Data to Display Coagulation Panel: No Data to Display Cardiac Panel: No Data to Display Arterial Blood Gas: No Data to Display Venous Blood Gas: No Data to Display Pancreas Panel: 2 No Data to Display Thyroid Panel: No Data to Display Infectious Disease: No Data to Display Blood Cultures: No Data to Display Toxicology Panel: No Data to Display Imaging and Studies Imaging and Studies Study information below may be from another EMR and interpreted by another provider. Please see original notes in EMR for more complete details. Stress Test Summary: 04/26: Stress ECG Conclusion 1. Resting electrocardiogram was normal 2. Patient exercised on the Ebenezer protocol completed workload of 8.5 METS 3. Normal heart rate and blood pressure response to exercise. The patient achieved 88% of predicted heart rate for age 4. At peak exercise there were diffuse nondiagnostic ST-T abnormalities Echocardiogram Summary: 02/23: Conclusion Normal left ventricular wall chamber size. Ejection fraction is 58%. Wall motion is normal Normal right ventricular size and function Both atria are normal in size There is no structural or hemodynamically significant valvular disease Pulmonary Function Summary: 06/16: INTERPRETATION SPIROMETRY: Spirometry shows mild obstructive airways disease with no significant bronchodilator response. LUNG VOLUMES: Lung volumes show no evidence of restriction. There is mild to moderate hyperinflation and air trapping. DIFFUSION CAPACITY: Mildly elevated. AIRWAY RESISTANCE: Normal. IMPRESSION: Mild obstructive airways disease with no significant bronchodilator response. This is associated with mild hyperinflation and air trapping. Mildly increased diffusion capacity can be seen in asthma. Clinical correlation recommended. Anesthesia Assessment and Plan Anesthesia History Personal History: Delayed Emergence Family History: No Family History of Anesthesia Complications Exercise Tolerance Exercise Tolerance: Metabolic Equivalents>4 Pertinent Negatives Pertinent Negatives: No Symptoms of GERD, No Major Cardiovascular Symptoms or Complaints, No Major Pulmonary Symptoms or Complaints and No History of CVA/TIA Cardiac & Pulmonary Exam Cardiac Exam: Normal S1/S2 Heart Sounds Pulmonary Exam: Clear Bilateral Breath Sounds Implantable Cardiac Device Does patient have a Pacemaker or an ICD?: No Airway Exam Known Difficult Airway: No Mallampati Class: 1 Mouth Opening: Normal (> 3cm) Thyromental Distance: Greater than 3 cm Neck Range of Motion: Full ROM Neck Circumference: Normal Teeth Condition: Normal Dentition ASA Classification ASA Score: ASA 2 Emergency Case?: No NPO Status NPO Status: NPO Clears >2 hours, Solids >8 hours Anesthesia Plan Resuscitation Status: Full Code Anesthesia Technique: General Anesthesia (with intrathecal narcotics) Airway Planned: Endotracheal Tube Pain Management: Other (Narcotics/SAB) Monitors Used: Standard Monitors and SedLine Preoperative Comments:: Pt refusing urine HCG, post-menopausel, tubes tied. Cullen Lindsey CRNA
[2024-06-15] MEDS: Lactated Ringers 500 ML 30 ML IV ×2 (08:20→11:42)
[2024-06-15] MEDS: ceFAZolin 2 GM/50 ML BAG IVPB (09:44)
[2024-06-15] MEDS: Bupivacaine 0.5% Pres-Free 30 ML VIAL (10:16)
--- NOTE | 2024-06-15 11:32 | UTER_PTH ---
PATIENT: Ute Balbuena LOC: U#:[id number] AGE/SX: 58/F ROOM: [id number] RE06/15/[address]: Esther Monroe DO : 1965 BED: A DIS: 06/16/2024 SPEC #: [id number] RECD: 06/15/24 12:41 STATUS: SOUT REQ #: [id number] JAKY: 06/15/24 11:[address]: Esther Monroe DEPT: Surgical Specimen RECD BY: Quin Gifford ENTERED: 06/15/24 12:43 SP TYPE: UTER OTHR DR: Emma Larson Tissues: 1 - UTERUS W OR W/O OVARIES(NOT TUMOR/PROLAPSE) Procedures: GROSS AND MICRO LEVEL 5 Comments: [id number]
--- NOTE | 2024-06-15 11:55 | W.PM.OP ---
Date of service: 06/15/24 Time of Service: 11:55 Operative Note Operative Note DATE OF PROCEDURE: 06/15/24 PRE-OP DIAGNOSIS: Ongoing postmenopausal bleeding, pelvic pain POST-OP DIAGNOSIS: same Adhesions of the omentum to the right pelvic sidewall PROCEDURE: Laparoscopically assisted vaginal hysterectomy, bilateral salpingo-oophorectomy, lysis of adhesions, cystoscopy SURGEON: Esther Monroe ASSISTING SURGEON: Antonette Miramontes ANESTHESIA TYPE: Local By Surgeon, General LMA/ETT and Spinal Refer to Anesthesia Record ESTIMATED BLOOD LOSS: 100 PATHOLOGY: other (Uterus, tubes, ovaries, cervix) COMPLICATIONS: None Patient was transported to: PACU Patient's condition: stable Indications: Ongoing postmenopausal bleeding, chronic pelvic pain Findings: Atrophic ovaries bilaterally, interrupted fallopian tubes bilaterally, slightly bulky uterus approximately 8 weeks size. Adhesions of the omentum to the right mid anterior abdominal wall. Atraumatic bladder, patent ureters bilaterally. Procedure Description: After full informed consent was obtained, patient was taken the operating suite. She was placed in the seated position and spinal anesthesia administered for postoperative pain management. She was then placed in dorsal supine position. She had pneumatic compression stockings for DVT prophylaxis. She received 2 g of Ancef for surgical site infection prophylaxis. She was then placed in the modified dorsolithotomy position in yellowfin stirrups and prepped and draped in the usual sterile fashion. Blanca catheter was inserted for continuous bladder drainage. A full timeout was held. Exam under anesthesia revealed a uterus that was midline and mobile and slightly enlarged approximately 6 to 8 weeks size. At this point attention was turned to the vaginal vault where a speculum was inserted into the vagina and the cervix identified. A ZUMI uterine manipulator was placed into the endometrial cavity for uterine manipulation through the surgery. Speculum was then removed and attention was turned to the abdomen. Infiltration of half percent Marcaine was used at the umbilical site. A vertical skin incision was made and the intra-abdominal wall elevated with sharp towel clips. A Veress needle was inserted into the abdomen. Pneumoperitoneum was created with a maximum pressure of 15 mmHg. Once pneumoperitoneum was created, a 12 mm Optiview bladeless sleeve and trocar were placed under direct visualization. The abdomen was then inspected. There is no evidence of trauma. There were noted to be adhesions of the omentum to the right mid anterior abdominal wall. The uterus was elevated and found to be midline and mobile, slightly enlarged approximately 6 to 8 weeks size. Fallopian tubes are present though previously disrupted. Ovaries appeared small and atrophic. Liver edge was smooth and regular. There was no other intra-abdominal pathology or traumatic injury noted. At this point a second left lower quadrant trocar site was placed under direct visualization after infiltration of half percent Marcaine. A LigaSure device was used to gently dissect the filmy adhesions of the omentum away from the anterior abdominal wall. At this point a third right lower quadrant trocar site was placed under direct visualization after infiltration of half percent Marcaine. Patient was placed in Trendelenburg and small and large bowel swept out of the pelvis. The uterus elevated and attention was initially turned to the left adnexa where the left fallopian tube and ovary were elevated and the infundibulopelvic ligament on the left was cautery transected and ligated. The left round ligament was then cautery transected and ligated allowing opening of the broad ligament. The anterior leaf of the broad ligament was incised to create the left side of the bladder flap. The left uterine artery and vein were cauterized. A similar procedure was carried out on the right fallopian tube and ovary with cautery transection of the right infundibulopelvic ligament. The right round ligament was then cauterized and transected and the broad ligament opened. The remainder of the bladder flap was created anteriorly. The right uterine artery and vein were cauterized. At this point all pedicles were inspected noted be hemostatic. The bladder flap was created and bladder pushed well away from the lower uterine segment. With this dissection complete, attention was turned to the vaginal vault. Pneumoperitoneum had been released. A weighted speculum was placed into the posterior vaginal vault and the ZUMI uterine manipulator removed. The cervix was identified and grasped with Corine clamps in a circumferential fashion Bovie cautery used to create an incision at the cervical vaginal interface. Initial attempt to enter the posterior cul-de-sac was unsuccessful and small bites of the right and left uterosacral cardinal complex were made and suture-ligated systematically. Attention was then turned to the anterior cul-de-sac where with meticulous sharp dissection the anterior cul-de-sac was entered. The remainder of the uterine pedicles were clamped transected and ligated and the posterior cul-de-sac was entered. The uterus was then delivered through the vagina with the fallopian tubes and ovaries attached. There was 1 area at the left lateral aspect of the cuff that was not hemostatic which was oversewn with a single stitch of 0 Vicryl suture. This achieved hemostasis. The vaginal cuff was then closed in a running locked fashion, horizontally. Cuff was hemostatic. As of note, cuff incorporated the posterior peritoneum as well. With the vaginal cuff closed, attention was then returned to the abdomen. Pneumoperitoneum was recreated and all pedicles were inspected. There is 1 area that was not hemostatic at the anterior bladder flap which was cauterized. There was also a second area that was not hemostatic at the posterior edge of the closed cuff which was cauterized and noted to be hemostatic. With a low pressure of 5 mmHg, again all pedicles were inspected and noted to be hemostatic. Abdomen and pelvis were irrigated with copious amounts of normal saline and all pedicles again hemostatic. At this point this portion of the procedure was terminated. The patient received indigocarmine for identification of ureteric stream. After removal of the right and left lower quadrant trocar sites under direct visualization, the 10 mm camera was removed from the abdomen. The fascial incision at the umbilical area was closed using 0 Vicryl suture. Skin edge was reapproximated with 4-0 undyed Monocryl suture and Steri-Strips and sterile dressing were placed. At this point cystoscopy was performed and inspection of the entire bladder was noted to be without trauma or injury. Both right and left ureters were pulsing brisk streams of blue urine. With assurance of ureteric patency and bladder integrity, cystoscopy was complete. This point patient was returned to the dorsal supine position and transition to the postanesthesia care unit in stable condition. She had a Blanca catheter in situ draining blue-tinged urine. EBL: 100 mL Fluids: Crystalloid per anesthesia Pathology: Uterus, tubes, ovaries, cervix. Complications: None apparent.
--- NOTE | 2024-06-15 13:02 | W.ANESPOSTOP ---
Postoperative Evaluation Date, Time and Location Date Performed: 06/15/24 Time Performed: 13:02 Patient Location: PACU Vital Signs Most Recent Imported Vital Signs: Most Recent Vital Signs Temp Pulse Resp BP Pulse Ox 36.4 C L 78 15 125/75 95 06/15/24 12:43 06/15/24 12:46 06/15/24 12:50 06/15/24 12:46 06/15/24 12:50 Pain Score Most Recent Pain Score: Most Recent Pain Score Pain Level 2 06/15/24 12:53 Assessment Mental Status: Awake (Alert & Oriented to Patient Baseline) Airway and Respiratory Function: Patent airway with normal (patient baseline) respiratory exam Cardiovascular Function: Hemodynamically Stable Hydration Status: Adequately Hydrated Nausea & Vomiting: No Nausea or Vomiting Pain: Pain is tolerable per patient Peripheral Nerve Block: Patient did not receive a nerve block
[2024-06-15] MEDS: HYDROmorphone 1 MG/ML SYR IVP (13:11)
[2024-06-15] MEDS: oxyCODONE 5 mg/Acetaminophen 325 mg TAB PO ×2 (14:31→20:22)
[2024-06-15] MEDS: diphenhydrAMINE 50 MG/ML VIAL 25 MG IVP (14:32)
--- NOTE | 2024-06-15 15:42 | W.PC.ACHO ---
Registration Status: Primary Language: Preferred Language: Medical / Surgical History (Last Reviewed 06/15/24 @ 07:52 by Isabela Radford, RN) Sleep apnea Postmenopausal bleeding Hiatal hernia Fibrocystic changes of left breast Headache History of vitamin D deficiency Stage 1 mild COPD by GOLD classification Flank pain Allergic asthma GERD (Last Reviewed 06/15/24 @ 07:52 by Isabela Radford, RN) Postoperative state H/O colonoscopy Ligation of fallopian tube Dilation and curettage Anal fissure repair (~2003) Most Recent Vital Signs Temperature 36.3 C L 06/15/24 15:38 Temperature Source Tympanic 06/15/24 15:38 Pulse 80 06/15/24 15:38 Pulse Rhythm Regular 06/15/24 07:49 Pulse 77 06/15/24 13:16 Respiratory Rate 18 06/15/24 15:38 Respiratory Depth Normal 06/15/24 07:49 Blood Pressure 124/70 06/15/24 15:38 Blood Pressure Mean 74 06/15/24 13:15 Pulse Oximetry 95 06/15/24 15:38 Respiratory End-tidal CO2 42 06/15/24 12:56 Oxygen Delivery Method Room Air 06/15/24 15:38 Oxygen Flow Rate 0 06/15/24 15:38 Pain Level 3 06/15/24 15:38 Comment RN notified 06/15/24 15:38 Allergies Penicillins Allergy (Severe, Verified 06/15/24 07:57) Other (See Comment) rash, feeling of hands burning Active Medications Generic Name Dose Route Start Last Admin Trade Name Freq PRN Reason Stop Dose Admin Diphenhydramine HCl 25 mg 06/15/24 12:15 06/15/24 14:32 Diphenhydramine 50 Mg/Ml Vial IVP 06/16/24 12:14 25 mg Q6H PRN PRN Administration Persistent pruritis face/trunk Ringer's Solution 500 mls @ 30 mls/hr 06/15/24 07:15 06/15/24 12:59 IV 07/15/24 07:14 30 mls/hr INFUSION LEO Infusion Oxycodone/Acetaminophen 0 tab 06/15/24 11:51 06/15/24 14:31 Oxycodone 5 Mg/Acetaminophen 325 Mg Tab PO 07/15/24 11:50 2 tab Q4H PRN PRN Administration IV IV Catheter Type [Right Hand] Peripheral IV IV Catheter Gauge [Right Hand] 20 Diet Orders Category Date Time Status Regular/Normal [DIET] Nutrition 06/15/24 Lunch Active Intake and Output - 24 Hour Total 05/25/24 14:03 thru 06/15/24 13:18 Intake Total 950 Output Total 200 Balance 750 Weight 111 kg Intake: IV 950 Output: Urine 100 Estimated Blood Loss 100 Other: Urine Color Yellow Urine Appearance Clear Emesis Description None Urinary Catheter Urinary Catheter Date of 06/15/24 Insertion [Urethral (Blanca)] Time of insertion [Urethral ( 09:57 Blanca)] v v v v v v v v v Sending and/or Receiving Nurses: Please use comment section below to note any information pertinent to the patient hand-off not included above. Information / Comments: S/P hysterectomy and cystoscopy Report received from: Pat Olson [employer]
--- NOTE | 2024-06-15 16:16 | PGE_ITS ---
Date of Service Date of service: 06/15/24 Time of Service: 16:16 Assessment and Plan Assessment and plan (1) Status post laparoscopy-assisted vaginal hysterectomy: Status: Acute Assessment and plan: Postop day 0 status post laparoscopically assisted vaginal hysterectomy with bilateral salpingo-oophorectomy and lysis of adhesions. Doing well. Vitals are stable. Urine output appropriate. Advance diet. Pain control as necessary. Blanca catheter until the morning. Up in the chair and ambulate. All questions answered. Subjective Subjective Interval history since last seen: Patient seen and examined this afternoon. Surgery discussed with the patient at length today. She did have a spinal for postoperative pain control. She reports her pain as a 5 out of 10. Her vital signs are completely stable. She appears calm, relaxed, and comfortable. She will continue to have pain medication as necessary. All questions were answered. Vital signs are stable. Urine output is appropriate Exam Const General: cooperative, healthy appearing, comfortable, no acute distress, well developed and well groomed HENLA Head: normal to inspection Eyes General: appearance normal, both eyes and all related structures Neck Neck: normal visual inspection, supple, no anterior neck swelling and nontender Resp Effort & Inspection: normal respiratory effort, no audible wheezes and no cough Cardio Rate: regular rate Rhythm: regular rhythm Skin General skin exam: no rashes or lesions noted Extrem General: normal to inspection, no clubbing, cyanosis or edema and no calf tenderness bilaterally Psych Appearance: grossly normal Mental Status: mental status grossly normal Speech and Movement: speech and movement normal Mood: congruent mood Insight: insight good Judgment: judgment good Objective Last Vital Signs Temp 97.3 F L 06/15/24 15:38 Pulse 80 06/15/24 15:38 Resp 18 06/15/24 15:38 BP 124/70 06/15/24 15:38 Pulse Ox 95 06/15/24 15:38 Time Spent with Patient Time Spent with Patient: 25-34 minutes Time was spent: preparing to see the patient(eg.review tests), obtaining and/or reviewing separately otained hiistory, referring, communicating with other health health care administrator, indepentently interpreting results, counseling the patient and care coordination
[2024-06-15] MEDS: Ketorolac 15 MG/ML VIAL IVP (18:10)
[2024-06-15] MEDS: Sertraline 50 MG TAB PO (20:22)
[2024-06-15] MEDS: Docusate Sodium 100 MG CAP PO (20:22)
[2024-06-15] MEDS: Lactated Ringers 1,000 ML 125 ML IV (20:30)
[2024-06-15] MEDS: diphenhydrAMINE 25 MG CAP PO (21:43)
[2024-06-16] MEDS: Ketorolac 15 MG/ML VIAL IVP ×2 (00:25→06:10)
[2024-06-16] MEDS: Melatonin 3 MG TAB PO (00:25)
[2024-06-16] MEDS: oxyCODONE 5 mg/Acetaminophen 325 mg TAB PO ×3 (00:26→09:38)
[2024-06-16 04:19] VITALS: BP 123/64; PULSE 72; RESP 18; TEMP 36.8; O2SAT 96
[2024-06-16] MEDS: diphenhydrAMINE 50 MG/ML VIAL 25 MG IVP (06:15)
[2024-06-16] MEDS: Montelukast 10 MG TAB PO (08:05)
[2024-06-16] MEDS: Docusate Sodium 100 MG CAP PO (08:05)
[2024-06-16] MEDS: Omeprazole 20 MG CAPCR 40 MG PO (08:05)
[2024-06-16 09:20] LABS: HCT 38.9 % (36.0-46.0); HGB 12.5 g/dL (11.2-15.7); MCH 29.3 pg (27.0-33.0); MCHC 32.1 % (32.0-36.0); MCV 91 fL (80-95); MPV 10.4 fL (8.0-11.0); Platelet Count 312 10^3/uL (130-400); RBC 4.27 10^6/uL (3.93-5.22); RDW 12.5 % (11.7-14.6); RDW-SD 41.4 fL; WBC 16.32 10^3/uL (4.4-10.8)
[2024-06-16 09:40] VITALS: BP 115/75; PULSE 78; RESP 18; TEMP 36.7; O2SAT 92
--- NOTE | 2024-06-16 10:26 | W.PM.PROGNOT ---
Date of Service Date of service: 06/16/24 Time of Service: 10:26 Assessment and Plan Assessment and plan (1) Status post laparoscopy-assisted vaginal hysterectomy: Status: Acute Assessment and plan: Postoperative day #1 status post laparoscopic with history of vaginal hysterectomy bilateral salpingo-oophorectomy and lysis of adhesions. Overall doing well. Some discomfort reported. Good response to Percocet and ibuprofen. Overall stable clinical picture which would lead me to believe that she will be appropriate for discharge today. All of her questions were answered. Prescription will be sent to pharmacy. Subjective Subjective Interval history since last seen: Patient seen and examined this day postoperative day #1 status post laparoscopically assisted vaginal hysterectomy with bilateral salpingo-oophorectomy and lysis of adhesions. Overall she is doing well. She does report some pain. She is taking Percocet and ibuprofen. She is hungry with a voracious appetite. Her vital signs are stable. Her urine output is appropriate. Her hemoglobin is stable this morning at 12.5. Exam Const General: cooperative, healthy appearing, comfortable and no acute distress Nutritional Appearance: overweight HENMT Head: normal to inspection Eyes General: appearance normal, both eyes and all related structures Resp Effort & Inspection: normal respiratory effort, no audible wheezes, no cough and not labored Cardio Rate: regular rate Rhythm: regular rhythm GI Inspection: normal to inspection, no edema, non-distended and incision (Dressed, no surrounding erythema or ecchymosis) Palpation: soft, not firm and no guarding Skin General skin exam: no rashes or lesions noted Neuro General: patient alert, patient awake and patient oriented x3 Extrem General: normal to inspection, no clubbing, cyanosis or edema and no calf tenderness Objective Last Vital Signs Temp 98.1 F 06/16/24 09:40 Pulse 78 06/16/24 09:40 Resp 18 06/16/24 09:40 BP 115/75 06/16/24 09:40 Pulse Ox 92 06/16/24 09:40 Laboratory Results - last 24 hr 06/16/24 06:00 WBC 16.32 H RBC 4.27 Hgb 12.5 D Hct 38.9 MCV 91 MCH 29.3 MCHC 32.1 RDW 12.5 Plt Count 312 MPV 10.4 Time Spent with Patient Time Spent with Patient: 25-34 minutes Time was spent: preparing to see the patient(eg.review tests), obtaining and/or reviewing separately otained hiistory, ordering medications,tests, procedures, referring, communicating with other health reproductive healthcare assistant, indepentently interpreting results, counseling the patient and care coordination
--- NOTE | 2024-06-16 10:29 | W.PM.DS.N ---
Date of service: 06/16/24 Time of Service: 10:29 DS: Diagnosis Discharge Diagnosis (1) Status post laparoscopy-assisted vaginal hysterectomy: Status: Acute Asessment and Plan: Patient is postoperative day 1 status post laparoscopically assisted vaginal hysterectomy with bilateral salpingo-oophorectomy and lysis of adhesions. She is doing well and will be discharged home today. She is ambulatory, tolerating regular diet and oral pain medication with stable vital signs. Her follow-up will be in the office as scheduled on 06/27/2024. All questions were answered. Discharge Plan Disposition Patient Disposition: Home Condition: Improving Discharge Details Reason For Visit: [facility] Admit Date/Time: 06/15/24 11:51 Admit Provider: Esther Monroe Attending Provider: Esther Monroe Primary Care Provider: Emma Larson Hospital Course Hospital Course: Patient was admitted on 06/15/2024 for laparoscopically assisted vaginal hysterectomy with bilateral salpingo-oophorectomy. She was also noted to have intraoperative adhesions of the omentum to the anterior abdominal wall which were meticulously dissected. She an uncomplicated postoperative course and was discharged home postoperative day #1 ambulating, tolerating regular diet and oral pain medication with stable vital signs. Her disposition will be to home. Her activities as tolerated including pelvic rest and no heavy lifting for the next 6 weeks. No driving for the next 2 weeks. Her prescriptions will include Percocet, 5/325 1-2 p.o. every 6 hours as needed severe pain. Ibuprofen, 800 mg 1 p.o. every 6 to 8 hours as needed moderate pain and Colace for stool softening. She will be seen in the office in approximately 10 days for a postoperative visit. Home Meds and New Rx's Prescriptions: New ibuprofen 800 mg tablet 800 mg PO Q8H PRNQty: 60 1RF oxycodone-acetaminophen [Percocet] 5-325 mg tablet 1 tab PO Q6H PRNQty: 20 0RF docusate sodium [Colace] 100 mg capsule 100 mg PO BID Qty: 30 0RF No Action sertraline 50 mg tablet 50 mg PO HS ibuprofen [IBU] 800 mg tablet 800 mg PO Q8H Qty: 60 1RF norethindrone acetate 5 mg tablet 10 mg PO .Twice daily Qty: 60 1RF omeprazole [Prilosec] 40 MG capsule,delayed release(DR/EC) 40 mg PO DAILY aspirin [Harlan Low Dose Aspirin] 81 mg tablet,delayed release (DR/EC) 81 mg PO .bedtime montelukast 10 mg tablet 10 mg PO DAILY Caltrate-D3 Plus Minerals 300 mg-20 mcg- 25 mg-0.5 mg tablet 1 tab PO DAILY Allergy Relief (cetirizine) 10 mg capsule 10 mg PO .bedtime PRN famotidine 20 mg tablet 20 mg PO .bedtime melatonin 3 mg capsule 3 mg PO HS PRN Discharge Instructions Stand Alone Forms: DSU Post Soft Work Wrapper Examiner SurgeryW/Incision Activity:: Pelvic rest, no heavy lif Equipment/Supplies:: No Equipment Needed Diet:: As Tolerated Discharge Orders Discharge Orders: Discharge Order (Routine); Ordered 06/16/24 Ordered By: Esther Monroe DS: Summary Time Spent with Patient providing and/or coordinating discharge services: Greater than 30 minutes Status at Discharge Functional status at discharge: independent ambulation Overall status at discharge: patient is progressing back to baseline Mental Status: mental status grossly normal Speech and Movement: speech and movement normal Mood: congruent mood Affect: normal affect Quality:SDOH Health Related Social Needs: No Data to Display Exam Psych Mental Status: mental status grossly normal Speech and Movement: speech and movement normal Mood: congruent mood Affect: normal affect DS: Data Vitals/I&O Vitals and I&O: Vital Signs Temperature 98.1 F 06/16/24 09:40 Temperature Source Tympanic 06/16/24 09:40 Pulse 78 06/16/24 09:40 Pulse Rhythm Regular 06/15/24 07:49 Pulse 77 06/15/24 13:16 Respiratory Rate 18 06/16/24 09:40 Respiratory Effort Normal 06/15/24 17:55 Respiratory Depth Normal 06/15/24 17:55 Respiratory Pattern Normal 06/15/24 17:55 Blood Pressure 115/75 06/16/24 09:40 Blood Pressure Mean 74 06/15/24 13:15 Pulse Oximetry 92 06/16/24 09:40 Respiratory End-tidal CO2 42 06/15/24 12:56 Oxygen Delivery Method Room Air 06/16/24 09:40 Oxygen Flow Rate 0 06/16/24 09:40 Pain Level 4 06/16/24 09:38 Comment deferred by pt for sleep 06/16/24 00:00 Intake & Output 1106/15/24 06/16/24 11:59 23:59 11:59 Intake Total 550 / 2120 1570 / 2120 1600 / 1600 Output Total 200 / 300 100 / 300 575 / 575 Balance 350 / 1820 1470 / 1820 1025 / 1025 Weight 244 lb 11.41 oz Intake: IV 550 / 1050 500 / 1050 1000 / 1000 Oral 1070 / 1070 600 / 600 Output: Urine 100 / 200 100 / 200 575 / 575 Estimated Blood Loss 100 / 100 Other: Urine Color Yellow Indigo Yellow Urine Appearance Clear Clear Clear Emesis Description None Data Completed and Pending Labs on day of discharge: Labs from last 24 hours 06/16/24 06:00 WBC 16.32 H RBC 4.27 Hgb 12.5 D Hct 38.9 MCV 91 MCH 29.3 MCHC 32.1 RDW 12.5 Plt Count 312 MPV 10.4 PFSH All Active Problems (Updated 06/16/24 @ 10:30 by Esther Monroe DO) Status post bilateral salpingo-oophorectomy (BSO) (Acute) In conjunction with laparoscopically assisted vaginal hysterectomy 06/15/2024 Status post laparoscopy-assisted vaginal hysterectomy (Acute) LAVH, BSO, lysis of adhesions for postmenopausal bleeding and pelvic pain performed 06/15/2024 Menopausal symptoms (Acute) Hot flashes (Acute) Pelvic pain (Acute) Cervical lymphadenopathy (Acute) Neck pain (Acute) Neck mass (Acute) left level IV Depression (Chronic) ? Seasonal Depression ? Difficult Life situation Medical History (Updated 06/16/24 @ 10:30 by Esther Monroe DO) Sleep apnea Postmenopausal bleeding Endometrial biopsy 09/04/2023 Hiatal hernia Fibrocystic changes of left breast Headache History of vitamin D deficiency Stage 1 mild COPD by GOLD classification Flank pain Allergic asthma GERD Surgical History (Updated 06/15/24 @ 12:06 by Esther Monroe DO) Postoperative state Status post hysteroscopy with dilation and curettage- 06/14/24 pt. states she has a hard time waking H/O colonoscopy 10/11/2007 Dr Pablito Adams for blood per rectum, negative colo, blood likely from hemorrhoids Ligation of fallopian tube Dilation and curettage after SAB Anal fissure repair (~2003) Family History Father Heart disease COPD (chronic obstructive pulmonary disease) Mother Hypertension Osteoporosis Other Diabetes Social History Smoking/Tobacco Use Status: Never Smoking risk assessment performed?: Yes Alcohol Intake: current Alcohol Intake frequency: a few times a week Alcohol type: hard liquor Drug use: Never Substance use type: does not use Housing: house Do you feel safe at home: Yes Do you feel safe in your relationship?: Yes Time Spent with Patient Time Spent with Patient: <45 minutes Time was spent: preparing to see the patient(eg.review tests)
[2024-06-16 11:05] VITALS: BP 106/72; PULSE 73; RESP 18; TEMP 36.4; O2SAT 94
== END 2024-06-16 11:38 | disposition home or self-care (01) | DRG 743 ==
LOC: MS 13:41
PROVIDERS: Admitting Provider Obstetrics & Gynecology; PCP Nurse Practitioner Family; Visit Provider Obstetrics & Gynecology
PROC: 0UT9FZZ Resection of Uterus, Via Natural or Artificial Opening With Percutaneous Endoscopic Assistance (ICD-10-PCS; CPT 58552; principal; 2024-06-15 08:45)
DX: N95.9 Unspecified menopausal and perimenopausal disorder (principal); J45.998 Other asthma; J44.9 Chronic obstructive pulmonary disease, unspecified; F32.A Depression, unspecified; R93.89 Abnormal findings on diagnostic imaging of other specified body structures; R23.2 Flushing; R10.2 Pelvic and perineal pain; G47.30 Sleep apnea, unspecified; E55.9 Vitamin D deficiency, unspecified; K21.9 Gastro-esophageal reflux disease without esophagitis
CPT/HCPCS: 58552; 85027; 96361; 96374; 96375; 96376; 88307; G0378; J0131; J0665; J0690; J1100; J1171; J1200; J1885; J2274; J2371; J2405; J2704; J3010

== ENCOUNTER 2024-08-30 02:29 | Outpatient (CLI) | payer BC, SELFPAY ==
--- NOTE | 2024-08-30 | DI.MAMMO_ITS ---
Exam(s) MAMMO SCREENING EXAM: MAMMO SCREENING CLINICAL HISTORY: SCREENING MAMMO Z12.31 TECHNIQUE: Bilateral full field digital CC and MLO mammographic images were obtained with 3D tomosyn thesis and utilizing computer aided detection (CAD). COMPARISON: Available for comparison. FINDINGS: Masses/Architectural Distortion: No new or suspicious nodules are present. There are no areas of arc hitectural distortion. Microcalcifications: No suspicious pleomorphic-type are seen. Skin Thickening/Nipple Retraction: None. IMPRESSION: 1. No significant interval change with no specific features of malignancy noted. 2. Unless there is more urgent need, screening mammography is recommended, as per [employer] guidelines. BI-RADS Category 1 - Negative Breast Density - Category B - Scattered areas of fibroglandular density Breast density category C or D implies that the patient has dense breast tissue. Dense breast tissue is very common and is not abnormal but dense breast tissue can make it harder to find cancer on a ma mmogram. Also, dense breast tissue may increase their breast cancer risk. This information about the result of the mammogram report was provided to the patient to raise their awareness. Use this report when you speak with the patient about their risks for breast cancer, which includes their family hist ory. At that time, you may recommend for more screening tests (Ultrasound or MRI) as they might be us eful based on their risk. A negative radiographic report should not delay biopsy if a dominant or clinically suspicious mass is present. Up to ten percent of cancers are not identified on mammography. A negative report may reinforce clinical impression. Adenosis and dense breasts may obscure an underlying neoplasm. False positive reports average 6 to 10%. Patient will receive a letter notifying them of these results.
== END 2024-08-30 02:49 ==
LOC: DI 02:29
PROVIDERS: PCP Nurse Practitioner Family; Visit Provider Nurse Practitioner Family
DX: Z12.31 Encounter for screening mammogram for malignant neoplasm of breast (principal); R92.323 Mammographic fibroglandular density, bilateral breasts
CPT/HCPCS: 77063; 77067

== ENCOUNTER 2024-08-30 18:07 | Outpatient (REF) | payer BC, SELFPAY ==
[2024-08-30 16:11] LABS: Hemoglobin A1C 5.6 % (<5.7)
[2024-08-30 16:14] LABS: ALT 28 U/L (14-59); AST 24 U/L (15-37); Albumin 3.9 g/dL (3.4-5.0); Alkaline Phosphatase 99 U/L (46-116); Anion Gap 4.6 mmol/L (3-11); BUN 15 mg/dL (7-18); Bilirubin, Total 0.41 mg/dL (0.2-1.0); CO2 31.4 mmol/L (21.0-32.0); CREATININE 0.8 mg/dL (0.55-1.02); Calcium 9.7 mg/dL (8.5-10.1); Calculated LDL 123 mg/dL (<100); Chloride 106 mmol/L (98-107); Cholesterol 190 mg/dL (<200); Estimated GFR 85.35 (mL/min/1.73m2); Glucose 98 mg/dL (74-106); HDL Cholesterol 42 mg/dL (40-60); Potassium 4.3 mmol/L (3.5-5.1); Sodium 142 mmol/L (136-145); Total Protein 7.5 g/dL (6.4-8.2); Triglyceride 125 mg/dL (<150)
== END 2024-08-30 18:08 | disposition home or self-care (01) ==
LOC: NCHCN 18:07
PROVIDERS: PCP Nurse Practitioner Family; Visit Provider Nurse Practitioner Family
DX: I10 Essential (primary) hypertension (principal); Z13.220 Encounter for screening for lipoid disorders; R73.03 Prediabetes
CPT/HCPCS: 80053; 80061; 83036

== ENCOUNTER 2024-09-27 02:04 | Outpatient (CLI) | payer BC, SELFPAY ==
--- NOTE | 2024-09-27 | DI.MRI_ITS ---
Exam(s) MR BRAIN WO EXAM: MR BRAIN WO CLINICAL HISTORY: AMNESIA R41.3 FOR DAY TO DAY FACTS. TECHNIQUE: Multiplanar multisequence MRI of the brain was performed. CONTRAST MATERIAL: IV Contrast: ML of Dotarem contrast administered. COMPARISON: No exams were available for comparison FINDINGS: VENTRICLES AND EXTRA AXIAL SPACES: Normal in size and morphology for the patient's age. HEMORRHAGE: None. CEREBRAL PARENCHYMA: No focus of restricted diffusion to suggest acute infarct. No space-occupying le roopa identified. Mild atrophy. There are several scattered foci high signal in the white matter, not periventricular, nonspecific, but commonly secondary to chronic microvascular ischemia. BRAINSTEM/CEREBELLUM: Normal. CALVARIUM: Normal. ENHANCEMENT: No suspicious enhancement identified. VISUALIZED PARANASAL SINUSES/MASTOIDS: Clear. Orbits: Unremarkable. Pituitary: Not enlarged. Vasculature: Normal flow voids. IMPRESSION: Scattered white matter foci which may be secondary to chronic microvascular ischemia. DATA REPOSITORY:
== END 2024-09-27 02:24 ==
LOC: DI 02:04
PROVIDERS: PCP Nurse Practitioner Family; Visit Provider Nurse Practitioner Family
DX: R41.3 Other amnesia (principal)
CPT/HCPCS: 70551

== ENCOUNTER 2025-01-23 10:42 | Day surgery (SDC) | payer BC, SELFPAY ==
--- NOTE | 2025-01-22 20:46 | W.PM.DSUDISC ---
Date of service: 01/23/25 Discharge Plan Disposition Patient Disposition: Home Condition: Good Discharge Details Reason For Visit: screening colonoscopy Attending Provider: Eder Rae Primary Care Provider: Emma Larson Home Meds and New Rx's Prescriptions: Continued lisinopril 5 mg tablet 5 mg PO DAILY albuterol sulfate 90 mcg/actuation aerosol powdr breath activated 2 inh inhalation Q6H PRN sertraline 50 mg tablet 50 mg PO HS cholecalciferol (vitamin D3) 25 mcg (1,000 unit) capsule 25 mcg PO DAILY cranberry 500 mg capsule 500 mg PO DAILY Rx Instructions: administer with meals multivitamin Tablet 1 tab PO DAILY omeprazole [Prilosec] 40 MG capsule,delayed release(DR/EC) 40 mg PO DAILY aspirin [Harlan Low Dose Aspirin] 81 mg tablet,delayed release (DR/EC) 81 mg PO .bedtime montelukast 10 mg tablet 10 mg PO DAILY Caltrate-D3 Plus Minerals 300 mg-20 mcg- 25 mg-0.5 mg tablet 1 tab PO DAILY Allergy Relief (cetirizine) 10 mg capsule 10 mg PO .bedtime PRN famotidine 20 mg tablet 20 mg PO .bedtime Discontinued bisacodyl [Dulcolax (bisacodyl)] 5 mg tablet,delayed release (DR/EC) 5 mg PO ONCE Qty: 4 0RF Rx Instructions: Take per colonoscopy instructions provided by ordering providers office polyethylene glycol 3350 17 gram/dose powder 17 g PO ONCE Qty: 238 0RF Rx Instructions: Take per colonoscopy instructions provided by ordering providers office No Action fluticasone propionate 50 mcg/actuation spray,suspension INTRANASAL Discharge Instructions Instructions: Colon polyps Additional Instructions: Charlene, it was very nice to meet you today, and I hope you feel well after the procedure. Things went very smoothly. I did find, and removed a total of 4 polyps today. These were actually clustered in 2 groups of 2. Generally, they are small, and there are no features that appear particularly worrisome to me. I will follow-up on the pathology report once that is available, and we can use that to figure out the timing of your next colonoscopy. If you need anything, or have any questions in the meantime, please do not hesitate to ask 1. If tolerated, consume a soft, low fiber diet for 1-2 days. [address] not drive, drink alcohol, operate machinery, make critical decisions, or do activities that require coordination or balance for 24 hours. 3. Because air was put into your colon during the procedure, expelling air from your rectum (passing gas or farting) is normal. 4. You may not have a bowel movement for 1-3 days because of the colonoscopy prep. This is normal. 5. Go directly to the emergency room if you notice any of the following: Develop chills (warm to touch), or if you have a thermometer and your temperature is above 101 Difficulty breathing or difficultly swallowing Persistent vomiting Severe abdominal pain, other than gas cramps Severe chest pain Black, tarry stools Any bleeding ? exceeding one tablespoon 6. Call your physician if the site where your intravenous was started becomes red, swollen, painful, and warm to touch. 7. Your physician has reviewed your pre-procedure medications. Please continue to take those medications as previously ordered. You will be given specific information/education regarding any changes to your medications before leaving. Stand Alone Forms: Anesthesia Discharge InstDonn, Jacque Gibbons (DSU) Activity:: Activity as Tolerated Diet:: As Tolerated Discharge Orders Discharge Orders: Discharge Order (Routine); Ordered 01/22/25 Ordered By: Eder Rae DS: Diagnosis Discharge Diagnosis (1) Encounter for screening colonoscopy: Status: Acute Asessment and Plan: Follow-up on polypectomy results
--- NOTE | 2025-01-22 20:47 | COLE_ITS ---
Date of service: 01/23/25 Time of Service: 13:13 Colonoscopy Report Date of procedure: 01/23/25 Pre-op diagnosis general: screening colonoscopy Post-op diagnosis procedure note: other (Colon polyps) Procedure: colonoscopy with polypectomy Surgeon: Eder Rae Anesthesia Type: General:No Airway Estimated blood loss (mL): 5 Pathology: other (0.25 cm flat polyps at 90 cm x 2 (single specimen), 0.25 cm flat polyps at 75 cm x 2 (single specimen)) Complications: None Disposition: same day Indications: Ute is a 59 year old woman who is due for her next screening colonoscopy Prep: Miralax/Dulcolax Procedure Start Time: 12:45 Procedure End Time: 13:04 Retraction Time: 10 Findings: 0.25 cm flat polyps at 90 cm x 2 (single specimen), 0.25 cm flat polyps at 75 cm x 2 (single specimen) Procedure Description: After the induction of anesthesia, and with the patient in left lateral decubitus position, I began by performing an external anorectal exam.? There are external hemorrhoids.? Next, I performed a digital rectal exam.? I did not appreciate any abnormal findings.? Next, I advanced a colonoscope into the rectal vault.? I performed retroflexion.? This appeared normal.? Using insufflation, I then advanced the colonoscope beyond the rectal folds and into the sigmoid colon before advancing towards the cecum.? The scope was noted to be in the cecum by identification of the ileocecal valve and appendiceal orifice.? Around 90 cm from the anal verge were 2 small polyps. These were a few millimeters away from 1 another. Each polyp was less than 0.25 cm. Both of these polyps were flat, and I removed them with cold forceps. These were sent as a single specimen. There was minimal bleeding from the sites. I then began withdrawing the colonoscope using repeated irrigation as necessary for full evaluation of the colonic mucosa. At 75 cm from the anal verge were 2 more polyps. These were also flat, and slightly larger than the other 2, but still less than 0.25 cm. These were removed in piecemeal with cold forceps, and these were also sent as a single specimen. ?Once the scope was withdrawn to the level of the rectum, great care was taken to examine portions of the rectal folds.? Finally, the scope was withdrawn and the patient was brought to the same-day surgery recovery unit as the anesthetic wore off. ?The findings and instructions were shared with the patient prior to discharge. [place] Bowel Prep [place] Bowel Prep Right Colon: 3 Left Colon: 3 Transverse Colon: 3 Total Score: 9
[2025-01-23 10:55] VITALS: BP 145/79; PULSE 79; RESP 18; TEMP 36.6; O2SAT 95
[2025-01-23] MEDS: Lactated Ringers 1,000 ML 80 ML IV (12:00)
--- NOTE | 2025-01-23 12:01 | ANES.PREOP_ITS ---
General Info Date of Service Date Performed: 01/23/25 Height: 5 ft 6 in Weight: 107.7 kg Body Mass Index (BMI): 38.3 Surgical Procedure: Operation Date: 01/23/25 12:05 Proposed Procedure Side Surgeon vannessa Rae MD Meds Allergies and Home Medications Allergies Allergy/AdvReac Type Severity Reaction Status Date / Time Penicillins Allergy Severe Other (See Verified 01/23/25 11:12 Comment) Home Medication ?Medication ?Instructions ?Recorded omeprazole 40 mg capsule,delayed 40 mg PO DAILY release (Prilosec) sertraline 50 mg tablet 50 mg PO HS 08/26/18 aspirin 81 mg tablet,delayed 81 mg PO .bedtime Heart 1 08/15/23 release (Harlan Low Dose Aspirin) calcium 300 mg-D3 20 mcg-magnesium 1 tab PO DAILY 06/03 10/24 25 mg-coppr 0.5 [id number] tablet (Caltrate-D3 Plus Minerals) cetirizine 10 mg capsule (Allergy 10 mg PO .bedtime MN N 06/15/24 Relief (cetirizine)) famotidine 20 mg tablet 20 mg PO .bedtime 06/15/24 montelukast 10 mg tablet 10 mg PO DAILY 06/15/24 cholecalciferol (vitamin D3) 25 25 mcg PO DAILY mcg (1,000 unit) capsule cranberry 500 mg capsule 500 mg PO DAILY 10/12/24 multivitamin 1 tab PO DAILY 10/12/24 lisinopril 5 mg tablet 5 mg PO DAILY 01/12/25 albuterol sulfate 90 mcg/actuation 2 inh inhalation Q6 H PRN 01/13/25 breath activated powder inhaler fluticasone propionate 50 intranasal 01/23/25 mcg/actuation nasal spray,suspension Current Visit Medications: Current Medications Generic Name Dose Route Start Last Admin Trade Name Freq PRN Reason Stop Dose Admin Ringer's Solution 1,000 mls @ 80 mls/hr 01/23/25 06:00 IV 01/23/25 23:59 [facility]ION [facility] IV Miscellaneous Supplies 1 each 01/23/25 06:00 Iv Access IV 01/23/25 23:59 DIRECTED LEO Ondansetron HCl 4 mg 01/22/25 20:48 Ondansetron 4 Mg/2 Ml Vial IVP 02/21/25 20:47 Q4H PRN PRN Nausea / Vomiting Sodium Chloride 0 ml 01/23/25 06:00 Normal Saline Flush 10 Ml Syr IV 01/23/25 23:59 PRN PRN Sodium Chloride 0 ml 01/23/25 06:00 Normal Saline 10 Ml Vial IJ 01/23/25 23:59 DIRECTED PRN Sterile Water 0 ml 01/23/25 06:00 Water,Injection,Sterile 10 Ml Vial IJ 01/23/25 23:59 DIRECTED PRN PFSH Active Problems Active Problems: Problem Status Onset Code Yeast vaginitis Acute B37.31 Status post bilateral salpingo-oophorectomy (BSO) Acute Z90.722 Status post laparoscopy-assisted vaginal hysterectomy Acute Z90.710 Menopausal symptoms Acute N95.1 Hot flashes Acute R23.2 Pelvic pain Acute R10.2 Cervical lymphadenopathy Acute R59.0 Neck pain Acute M54.2 Neck mass Acute R22.1 Depression Chronic Medical History Medical History HARI (obstructive sleep apnea) Diaphragmatic hernia GERD (gastroesophageal reflux disease) Axillary lymphadenopathy Sleep apnea Postmenopausal bleeding Endometrial biopsy 09/04/2023 Hiatal hernia Fibrocystic changes of left breast Headache History of vitamin D deficiency Stage 1 mild COPD by GOLD classification Flank pain Allergic asthma GERD Surgical History Surgical History Postoperative state Status post hysteroscopy with dilation and curettage- 06/14/24 pt. states she has a hard time waking H/O colonoscopy 10/11/2007 Dr Pablito Adams for blood per rectum, negative colo, blood likely from hemorrhoids Ligation of fallopian tube Dilation and curettage after SAB Anal fissure repair (~2003) Tobacco Smoking/Tobacco Use Status: Never Alcohol Alcohol Intake: current Alcohol intake frequency: a few times a week Alcohol type: hard liquor Substance Use Substance use: Never Substance use type: does not use Vital Signs and Lab Results Vital Signs Most Recent Vital Signs in EMR: Most Recent Vital Signs Temp Pulse Resp BP Pulse Ox 36.6 C 79 18 145/79 H 95 01/23/25 10:55 01/23/25 10:55 01/23/25 10:55 01/23/25 10:55 01/23/25 10:55 Imaging and Studies Imaging and Studies Study information below may be from another EMR and interpreted by another provider. Please see original notes in EMR for more complete details. Stress Test Summary: 04/26: Stress ECG Conclusion 1. Resting electrocardiogram was normal 2. Patient exercised on the Ebenezer protocol completed workload of 8.5 METS 3. Normal heart rate and blood pressure response to exercise. The patient achieved 88% of predicted heart rate for age 4. At peak exercise there were diffuse nondiagnostic ST-T abnormalities Echocardiogram Summary: 02/23: Conclusion Normal left ventricular wall chamber size. Ejection fraction is 58%. Wall motion is normal Normal right ventricular size and function Both atria are normal in size There is no structural or hemodynamically significant valvular disease Pulmonary Function Summary: 06/16: INTERPRETATION SPIROMETRY: Spirometry shows mild obstructive airways disease with no significant bronchodilator response. LUNG VOLUMES: Lung volumes show no evidence of restriction. There is mild to moderate hyperinflation and air trapping. DIFFUSION CAPACITY: Mildly elevated. AIRWAY RESISTANCE: Normal. IMPRESSION: Mild obstructive airways disease with no significant bronchodilator response. This is associated with mild hyperinflation and air trapping. Mildly increased diffusion capacity can be seen in asthma. Clinical correlation recommended. Anesthesia Assessment and Plan Anesthesia History Personal History: Delayed Emergence Family History: No Family History of Anesthesia Complications Exercise Tolerance Exercise Tolerance: Metabolic Equivalents>4 Pertinent Negatives Pertinent Negatives: No Symptoms of GERD Cardiac & Pulmonary Exam Cardiac Exam: Normal S1/S2 Heart Sounds Pulmonary Exam: Clear Bilateral Breath Sounds Implantable Cardiac Device Does patient have a Pacemaker or an ICD?: No Airway Exam Known Difficult Airway: No Mallampati Class: 1 Mouth Opening: Normal (> 3cm) Thyromental Distance: Greater than 3 cm Neck Range of Motion: Full ROM Neck Circumference: Normal Teeth Condition: Normal Dentition ASA Classification ASA Score: ASA 2 Emergency Case?: No NPO Status NPO Status: NPO Clears >2 hours, Solids >8 hours Anesthesia Plan Resuscitation Status: Full Code Anesthesia Technique: General Anesthesia Airway Planned: Natural Airway Monitors Used: Standard Monitors
[2025-01-23 12:24] VITALS: BMI 38.3
--- NOTE | 2025-01-23 12:55 | BOWEL_PTH ---
PATIENT: Ute Balbuena LOC: [place] U#:[id number] AGE/SX: 59/F ROOM: RE01/23/[address]: Eder Rae MD : 1965 BED: DIS: 01/23/2025 SPEC #: [id number] RECD: 01/23/25 17:57 STATUS: JIHAN REQ #: [id number] JAKY: 01/23/25 12:[address]: Eder Rae DEPT: Surgical Specimen RECD BY: Quin Gifford ENTERED: 01/23/25 17:58 SP TYPE: Bowel OTHR DR: Emma Larson Tissues: 1 - BIOPSY BOWEL 2 - BIOPSY BOWEL Procedures: GROSS AND MICRO LEVEL 4 Comments: [id number]
[2025-01-23 13:13] VITALS: BP 96/54; PULSE 66; RESP 18; TEMP 36; O2SAT 95
[2025-01-23 13:41] VITALS: BP 102/74; PULSE 74; RESP 18; TEMP 36.7; O2SAT 97
--- NOTE | 2025-01-23 13:58 | W.ANESPOSTOP ---
Postoperative Evaluation Date, Time and Location Date Performed: 01/23/25 Time Performed: 13:58 Patient Location: Day Surgery Unit Vital Signs Most Recent Imported Vital Signs: Most Recent Vital Signs Temp Pulse Resp BP Pulse Ox 36.7 C 74 18 102/74 97 01/23/25 13:41 01/23/25 13:41 01/23/25 13:41 01/23/25 13:41 01/23/25 13:41 Pain Score Most Recent Pain Score: Most Recent Pain Score Pain Level 0 01/23/25 13:41 Assessment Mental Status: Awake (Alert & Oriented to Patient Baseline) Airway and Respiratory Function: Patent airway with normal (patient baseline) respiratory exam Cardiovascular Function: Hemodynamically Stable Hydration Status: Adequately Hydrated Nausea & Vomiting: No Nausea or Vomiting Pain: Pt. Denies Any Pain Peripheral Nerve Block: Patient did not receive a nerve block
== END 2025-01-23 13:59 | disposition home or self-care (01) ==
LOC: SUR 10:42
PROVIDERS: PCP Nurse Practitioner Family; Visit Provider Surgery
PROC: 0DJD8ZZ Inspection of Lower Intestinal Tract, Via Natural or Artificial Opening Endoscopic (ICD-10-PCS; CPT 45378; principal; 2025-01-23 12:00)
DX: Z12.11 Encounter for screening for malignant neoplasm of colon (principal); D12.3 Benign neoplasm of transverse colon
CPT/HCPCS: 45380; 88305; J2371; J2704

== ENCOUNTER 2025-02-21 13:12 | Outpatient (CLI) | payer BC, SELFPAY ==
[2025-02-21 13:06] LABS: Vitamin B12 498 pg/mL (193-986)
== END 2025-02-21 13:13 | disposition home or self-care (01) ==
LOC: LBO 13:13
PROVIDERS: PCP Nurse Practitioner Family; Visit Provider Psychiatry & Neurology Neurology
DX: R41.3 Other amnesia (principal)
CPT/HCPCS: 36415; 82607

== ENCOUNTER 2025-02-28 11:12 | Outpatient (REF) | payer BC, SELFPAY ==
--- NOTE | 2025-02-28 14:00 | SKI_PTH ---
PATIENT: Ute Balbuena LOC: [place] U#:[id number] AGE/SX: 59/F ROOM: RE02/28/[address]: Marley De La Vega : 1965 BED: DIS: 02/28/2025 SPEC #: [id number] RECD: 03/01/25 12:50 STATUS: JIHAN REQ #: [id number] JAKY: 02/28/25 14:[address]: Marley De La Vega DEPT: Surgical Specimen RECD BY: Quin Gifford ENTERED: 03/01/25 12:50 SP TYPE: PERFECTO JIMENEZ DR: Emma Larson Tissues: 1 - SKIN BIOPSY(SHAVE/PUNCH) Procedures: SKIN LEVEL 4 Comments: [id number]
== END 2025-02-28 11:13 | disposition home or self-care (01) ==
LOC: LBN 11:12
PROVIDERS: PCP Nurse Practitioner Family; Visit Provider Physician Assistant Medical
DX: C44.529 Squamous cell carcinoma of skin of other part of trunk (principal)
CPT/HCPCS: 88305

== ENCOUNTER 2025-03-22 16:52 | Outpatient (CLI) | payer BC, SELFPAY ==
--- NOTE | 2025-03-22 | DI.CT_ITS ---
Exam(s) CT ABDOMEN PELVIS WO/W EXAM: CT ABDOMEN PELVIS WO/W CLINICAL HISTORY: LT FLANK AND ABD PAIN,. TECHNIQUE: Imaging Protocol: Axial computed tomography images with coronal and sagittal reformatted images were created and reviewed. Images were performed from the lung bases through the ischial tuberosities before IV contrast and following IV contrast using a 70 second delay, followed by 7 minutes delayed images. CONTRAST MATERIAL: Intravenous: Omnipaque 350 Contrast volume:70 cc Oral: no COMPARISON: CT CT ABDOMEN PELVIS W from 01/17/2021 CT,NM,TMT NM MPI REST STRESS GRP from 04/14/2024 FINDINGS: Lung Bases: Mild basilar atelectasis. Liver: Normal size. Mild fatty infiltration. Stable cyst superior medial right lobe. Gallbladder and biliary tract: No biliary dilation. Pancreas: Normal density, no abnormal calcifications or inflammatory process. Spleen: Normal. Kidneys: Normal size, contour and axis. No radiodense stones or obstructive uropathy. No suspicious masses seen. Adrenal glands: No masses seen. Lymph nodes: Within normal limits. Abdominal Aorta: Abdominal portion non-dilated. Soft tissues: Unremarkable. Bladder: No gross wall thickening. No evidence of a mass.No evidence of calculi. Bowel: Stomach unremarkable. No obstruction or bowel wall thickening. No evidence of appendicitis. Normal quantity of stool. Peritoneal cavity: No ascites, collection or mesenteric inflammatory response. Bones: Degenerative disc changes at L5-S1. Reproductive organs: Unremarkable hysterectomy. IMPRESSION: No suspicious renal mass. No evidence of urinary tract calculi. No evidence of hydronephrosis. RADIATION DOSE DELIVERED: 2,170.95mGy.cm Total DLP DATA REPOSITORY: All CT scans at this facility are submitted to the National Radiology Data Registry (NRDR) Dose Index Registry (DIR) with the [employer] (A[employer]). RADIATION OPTIMIZATION: All CT scans at this facility use at least one of these dose optimization techniques: automated exposure control; mA and/or kV adjustment per patient size (includes targeted exams where dose is matched to clinical indication); or iterative reconstruction.
[2025-03-22 12:17] LABS: Abs Immature Grans 0.03 10^3/uL (0.0-0.06); HCT 44.7 % (36.0-46.0); HGB 14.6 g/dL (11.2-15.7); Immature Grans % 0.4 %; MCH 28.6 pg (27.0-33.0); MCHC 32.7 % (32.0-36.0); MCV 88 fL (80-95); MPV 10.0 fL (8.0-11.0); Platelet Count 300 10^3/uL (130-400); RBC 5.10 10^6/uL (3.93-5.22); RDW 11.8 % (11.7-14.6); RDW-SD 38.1 fL; WBC 7.55 10^3/uL (4.4-10.8)
[2025-03-22 12:32] LABS: ALT 24 U/L (14-59); AST 19 U/L (15-37); Albumin 3.9 g/dL (3.4-5.0); Alkaline Phosphatase 105 U/L (46-116); Anion Gap 9.2 mmol/L (3-11); BUN 14 mg/dL (7-18); Bilirubin, Total 0.3 mg/dL (0.2-1.0); CO2 29.8 mmol/L (21.0-32.0); Calcium 9.3 mg/dL (8.5-10.1); Chloride 103 mmol/L (98-107); Estimated GFR 103.33 (mL/min/1.73m2); Glucose 92 mg/dL (74-106); Potassium 3.8 mmol/L (3.5-5.1); Sodium 142 mmol/L (136-145); Total Protein 7.5 g/dL (6.4-8.2)
[2025-03-22] MEDS: Omnipaque 350 MG/ML 100 ML BTL IJ (12:49)
[2025-03-22] MEDS: Normal Saline - Diluent 50 ML VIAL IJ (12:49)
[2025-03-22] MEDS: Normal Saline Flush 10 ML SYR IVP (12:50)
== END 2025-03-22 17:12 ==
LOC: DI 16:52
PROVIDERS: PCP Nurse Practitioner Family; Visit Provider Physician Assistant Medical
DX: R10.9 Unspecified abdominal pain (principal)
CPT/HCPCS: 80053; 74178; 85025; J3490

== ENCOUNTER 2025-05-12 15:21 | Outpatient (CLI) | payer BC, SELFPAY ==
--- NOTE | 2025-05-12 | DI.RAD_ITS ---
Exam(s) XR CHEST 2V PA LATERAL EXAM: XR CHEST 2V PA LATERAL CLINICAL HISTORY: J401 Bronchitis,not specified as acute or chronic TECHNIQUE: 2D digital imaging was performed of the chest. Two images were obtained. PA and lateral views were obtained. COMPARISON: CR CHEST 2 VIEWS PA,LAT from 05/26/2016 CR XR CHEST 2V PA LATERAL from 06/22/[address] CHEST W from 05/23/2024 FINDINGS: MEDIASTINUM: Normal. HEART: Normal. PULMONARY VASCULATURE: Normal. LUNGS: Clear. PLEURAL SPACE: No pleural effusion or pneumothorax. BONE:Within normal limits for the patient's age. OTHER FINDINGS:Normal. IMPRESSION: No acute pulmonary findings. DATA REPOSITORY: RADIATION DOSE DELIVERED:
== END 2025-05-12 15:41 ==
LOC: DI 15:21
PROVIDERS: PCP Nurse Practitioner Family; Visit Provider Physician Assistant Medical
DX: J40 Bronchitis, not specified as acute or chronic (principal)
CPT/HCPCS: 71046

== ENCOUNTER 2025-07-25 12:38 | Outpatient (CLI) | payer BC, SELFPAY ==
[2025-07-27 12:03] LABS: Bacterial Vaginosis (BV) Negative (Negative); Candida glabrata Negative (Negative); Candida species group Positive (Negative)
== END 2025-07-25 12:39 | disposition home or self-care (01) ==
LOC: NCHCN 12:39
PROVIDERS: PCP Nurse Practitioner Family
DX: R30.0 Dysuria (principal); N76.0 Acute vaginitis; B96.89 Other specified bacterial agents as the cause of diseases classified elsewhere
CPT/HCPCS: 81513; 87481; 87661; 87086; 87480; 87510; 87660